=== PATIENT | male | born 1980 | race Caucasian/White ===

== ENCOUNTER 2021-07-21 08:31 | Inpatient (IN) | payer OTHER ==
[2021-07-21 09:07] VITALS: BMI 26.7
[2021-07-21] MEDS ORDERED: BISMUTH SUBSALICYLATE 524 MG/30 ML PO PRN (11:42)
[2021-07-21] MEDS ORDERED: METHOCARBAMOL 500 MG TABLET PO PRN (11:42)
[2021-07-21] MEDS ORDERED: IBUPROFEN 400 MG TABLET (FP) PO PRN (11:42)
[2021-07-21] MEDS ORDERED: MAG HYDROX/AL HYDROX/SIMETH 30 ML UNIT-DOSE CUP PO PRN (11:42)
[2021-07-21] MEDS ORDERED: MAGNESIUM CITRATE 300 ML BOTTLE PO PRN (11:42)
[2021-07-21] MEDS ORDERED: ACETAMINOPHEN 325 MG TABLET (FP) PO PRN ×2 (11:42)
[2021-07-21] MEDS ORDERED: LOPERAMIDE HCL 2 MG CAPSULE PO PRN (11:42)
[2021-07-21] MEDS ORDERED: NICOTINE 10 MG CARTRIDGE (INHALER) IH PRN (11:42)
[2021-07-21] MEDS ORDERED: MENTHOL/PHENOL 1 EACH UD MM PRN (11:42)
[2021-07-21] MEDS ORDERED: LORazepam 2 MG TABLET PO ONE (11:42)
[2021-07-21] MEDS ORDERED: MAGNESIUM HYDROX 2400MG/30ML ORAL SUSPENSION 30 ML CUP PO PRN (11:42)
[2021-07-21] MEDS ORDERED: ONDANSETRON *ODT* 4 MG TABLET SL PRN (11:42)
[2021-07-21] MEDS ORDERED: LORazepam 1 MG TABLET PO PRN (11:42)
[2021-07-21] MEDS: LIDOCAINE 5% TOPICAL PATCH TP SCH (18:22)
[2021-07-21] MEDS: NICOTINE 21 MG/24 HOURS TOPICAL PATCH TD SCH (18:22)
[2021-07-21] MEDS: hydrOXYzine PAMOATE 25 MG CAPSULE (FP) PO SCH ×3 (18:22→22:32)
[2021-07-21] MEDS: LORazepam 2 MG TABLET PO SCH ×2 (18:23→22:31)
[2021-07-21] MEDS: THIAMINE HCL 100 MG TABLET (FP) PO SCH (22:31)
[2021-07-21] MEDS: LIDOCAINE PATCH REMOVAL MC SCH (22:35)
[2021-07-21] MEDS: MELATONIN 5 MG TABLETS PO SCH (22:36)
[2021-07-22] MEDS: hydrOXYzine PAMOATE 25 MG CAPSULE (FP) PO SCH ×5 (06:32→22:17)
[2021-07-22] MEDS: LORazepam 2 MG TABLET PO SCH ×4 (06:33→22:18)
[2021-07-22] MEDS: LIDOCAINE 5% TOPICAL PATCH TP SCH (10:20)
[2021-07-22] MEDS: PRENATAL VITAMINS W/ FOLIC ACID TABLET (FP) PO SCH (10:21)
[2021-07-22] MEDS: NICOTINE 21 MG/24 HOURS TOPICAL PATCH TD SCH (10:22)
[2021-07-22 11:35] LABS: HEMATOCRIT 38.5 % (35.4-49); HEMOGLOBIN 13.2 GM/dL (11.7-16.9); MCH 31.8 pg (25.7-33.7); MCHC 34.1 g/dl (32.0-35.9); MEAN CELL VOLUME 93.2 fl (80-96); MEAN PLT VOLUME 9.1 fl (7.5-11.1); PLATELET COUNT 109 10^3/uL (134-434); RBC 4.14 M/mm3 (4.00-5.60); RDW 14.8 % (11.9-15.9); WHITE BLOOD COUNT 3.9 K/mm3 (4.0-10.0)
[2021-07-22 11:52] LABS: ALBUMIN 2.8 g/dl (3.4-5.0); CREATININE 0.9 mg/dL (0.55-1.3)
[2021-07-22 11:53] LABS: BILIRUBIN,TOTAL 0.5 mg/dL (0.2-1); BLOOD UREA NITROGEN 14.7 mg/dL (7-18)
[2021-07-22 11:54] LABS: TOT PROT 6.5 g/dl (6.4-8.2)
[2021-07-22] MEDS: METOPROLOL TARTRATE 25 MG TABLET (FP) PO SCH (22:17)
[2021-07-22] MEDS: THIAMINE HCL 100 MG TABLET (FP) PO SCH (22:17)
[2021-07-22] MEDS: LIDOCAINE PATCH REMOVAL MC SCH (22:18)
[2021-07-22] MEDS: MELATONIN 5 MG TABLETS PO SCH (22:19)
[2021-07-23] MEDS: LORazepam 1 MG TABLET PO SCH ×3 (07:01→18:16)
[2021-07-23] MEDS: hydrOXYzine PAMOATE 25 MG CAPSULE (FP) PO SCH ×5 (07:02→18:15)
[2021-07-23] MEDS: PRENATAL VITAMINS W/ FOLIC ACID TABLET (FP) PO SCH (11:10)
[2021-07-23] MEDS: METOPROLOL TARTRATE 25 MG TABLET (FP) PO SCH (11:10)
[2021-07-23] MEDS: LIDOCAINE 5% TOPICAL PATCH TP SCH (11:10)
[2021-07-23] MEDS: NICOTINE 21 MG/24 HOURS TOPICAL PATCH TD SCH (11:13)
[2021-07-23 14:07] LABS: SARS-CoV-2 NAA Not Detected (Not Detected)
[2021-07-23 19:01] VITALS: BP 136/68; PULSE 119; TEMP 97.1
[2021-07-24] MEDS ORDERED: LORazepam 0.5 MG TABLET PO PRN
[2021-07-24] MEDS ORDERED: LORazepam 0.5 MG TABLET PO SCH (05:00)
[2021-07-25] MEDS ORDERED: LORazepam 0.5 MG TABLET PO ONE (05:00)
== END 2021-07-23 19:26 | disposition left against medical advice (07) | DRG 770 ==
LOC: YASAS 08:31 → Y6N 14:55
PROVIDERS: ADMIT Allergy & Immunology; ATTEND Allergy & Immunology
PROC: HZ2ZZZZ Detoxification Services for Substance Abuse Treatment (ICD-10-PCS; principal; 2021-07-21)
DX: F10.230 Alcohol dependence with withdrawal, uncomplicated (principal); F17.210 Nicotine dependence, cigarettes, uncomplicated; F10.24 Alcohol dependence with alcohol-induced mood disorder; F31.9 Bipolar disorder, unspecified; K21.9 Gastro-esophageal reflux disease without esophagitis; L30.9 Dermatitis, unspecified; M54.50 Low back pain, unspecified; G89.29 Other chronic pain; R74.01 Elevation of levels of liver transaminase levels; Z59.01 Sheltered homelessness
CPT/HCPCS: 36415; 80053; 85027; 86780; 87811; 93005; 93010; C9803; U0003; U0005

== ENCOUNTER 2021-10-15 10:06 | Inpatient (IN) | payer OTHER ==
[2021-10-15 11:08] VITALS: BMI 35.7
[2021-10-15] MEDS ORDERED: MAGNESIUM CITRATE 300 ML BOTTLE PO PRN (12:01)
[2021-10-15] MEDS ORDERED: IBUPROFEN 400 MG TABLET (FP) PO PRN (12:01)
[2021-10-15] MEDS ORDERED: MAGNESIUM HYDROX 2400MG/30ML ORAL SUSPENSION 30 ML CUP PO PRN (12:01)
[2021-10-15] MEDS ORDERED: ONDANSETRON *ODT* 4 MG TABLET SL PRN (12:01)
[2021-10-15] MEDS ORDERED: BENZOCAINE/MENTHOL (CHLORASEPTIC ) LOZENGE MM PRN (12:01)
[2021-10-15] MEDS ORDERED: METHOCARBAMOL 500 MG TABLET PO PRN (12:01)
[2021-10-15] MEDS ORDERED: LOPERAMIDE HCL 2 MG CAPSULE PO PRN (12:01)
[2021-10-15] MEDS ORDERED: ACETAMINOPHEN 325 MG TABLET (FP) PO PRN ×2 (12:01)
[2021-10-15] MEDS ORDERED: BISMUTH SUBSALICYLATE 262 MG/15 ML BTL PO PRN (12:01)
[2021-10-15] MEDS ORDERED: MAG HYDROX/AL HYDROX/SIMETH 30 ML UNIT-DOSE CUP PO PRN (12:01)
[2021-10-15] MEDS ORDERED: IBUPROFEN 600 MG TABLET (FP) PO PRN (12:01)
[2021-10-15] MEDS ORDERED: DICYCLOMINE HCL 10 MG CAPSULE PO PRN (12:01)
[2021-10-15] MEDS: hydrOXYzine PAMOATE 25 MG CAPSULE (FP) PO SCH ×3 (15:26→22:45)
[2021-10-15] MEDS: NICOTINE 21 MG/24 HOURS TOPICAL PATCH TD SCH (15:26)
[2021-10-15] MEDS: THIAMINE HCL 100 MG TABLET (FP) PO SCH (22:45)
[2021-10-15] MEDS: MELATONIN 5 MG TABLETS PO SCH (22:45)
[2021-10-16] MEDS: NICOTINE 10 MG CARTRIDGE (INHALER) IH PRN ×2 (05:53→15:45)
[2021-10-16] MEDS: hydrOXYzine PAMOATE 25 MG CAPSULE (FP) PO SCH ×5 (05:54→22:29)
[2021-10-16] MEDS: PRENATAL VITAMINS W/ FOLIC ACID TABLET (FP) PO SCH (09:47)
[2021-10-16] MEDS: NICOTINE 21 MG/24 HOURS TOPICAL PATCH TD SCH (09:48)
[2021-10-16] MEDS ORDERED: chlordiazePOXIDE HCL 25 MG CAPSULE PO PRN (09:53)
[2021-10-16 10:57] LABS: HEMATOCRIT 44.3 % (35.4-49); HEMOGLOBIN 14.6 GM/dL (11.7-16.9); MCH 29.5 pg (25.7-33.7); MCHC 32.9 g/dl (32.0-35.9); MEAN CELL VOLUME 89.6 fl (80-96); MEAN PLT VOLUME 10.3 fl (7.5-11.1); PLATELET COUNT 167 10^3/uL (134-434); RBC 4.94 M/mm3 (4.00-5.60); RDW 13.5 % (11.9-15.9); WHITE BLOOD COUNT 7.5 K/mm3 (4.0-10.0)
[2021-10-16 11:00] LABS: BLOOD UREA NITROGEN 18.9 mg/dL (7-18); CALCIUM 8.9 mg/dL (8.5-10.1)
[2021-10-16 11:04] LABS: CREATININE 0.9 mg/dL (0.55-1.3)
[2021-10-16 11:05] LABS: BILIRUBIN,TOTAL 0.4 mg/dL (0.2-1)
[2021-10-16] MEDS: chlordiazePOXIDE HCL 25 MG CAPSULE PO SCH ×3 (11:48→22:29)
[2021-10-16] MEDS: THIAMINE HCL 100 MG TABLET (FP) PO SCH (22:29)
[2021-10-16] MEDS: MELATONIN 5 MG TABLETS PO SCH (22:29)
[2021-10-17] MEDS: hydrOXYzine PAMOATE 25 MG CAPSULE (FP) PO SCH ×5 (08:15→22:23)
[2021-10-17] MEDS: chlordiazePOXIDE HCL 25 MG CAPSULE PO SCH ×4 (08:15→22:23)
[2021-10-17] MEDS: PRENATAL VITAMINS W/ FOLIC ACID TABLET (FP) PO SCH (10:19)
[2021-10-17] MEDS: NICOTINE 21 MG/24 HOURS TOPICAL PATCH TD SCH (10:22)
[2021-10-17] MEDS: NICOTINE 10 MG CARTRIDGE (INHALER) IH PRN (11:48)
[2021-10-17] MEDS: amLODIPine BESYLATE 10 MG TABLET (FP) PO SCH (15:57)
[2021-10-17] MEDS ORDERED: COLLOIDAL OATMEAL 1 BAR EACH TP PRN (20:47)
[2021-10-17] MEDS: THIAMINE HCL 100 MG TABLET (FP) PO SCH (22:23)
[2021-10-17] MEDS: MELATONIN 5 MG TABLETS PO SCH (22:23)
[2021-10-18] MEDS: chlordiazePOXIDE HCL 25 MG CAPSULE PO SCH ×4 (06:17→22:21)
[2021-10-18] MEDS: hydrOXYzine PAMOATE 25 MG CAPSULE (FP) PO SCH ×5 (06:17→22:19)
[2021-10-18] MEDS: NICOTINE 10 MG CARTRIDGE (INHALER) IH PRN (08:42)
[2021-10-18] MEDS: PRENATAL VITAMINS W/ FOLIC ACID TABLET (FP) PO SCH (10:05)
[2021-10-18] MEDS: amLODIPine BESYLATE 10 MG TABLET (FP) PO SCH (10:05)
[2021-10-18] MEDS: NICOTINE 21 MG/24 HOURS TOPICAL PATCH TD SCH (10:07)
[2021-10-18] MEDS: THIAMINE HCL 100 MG TABLET (FP) PO SCH (22:19)
[2021-10-18] MEDS: MELATONIN 5 MG TABLETS PO SCH (22:19)
[2021-10-19] MEDS ORDERED: chlordiazePOXIDE HCL 10 MG CAPSULE PO PRN
[2021-10-19] MEDS: hydrOXYzine PAMOATE 25 MG CAPSULE (FP) PO SCH ×2 (06:13→10:16)
[2021-10-19] MEDS: chlordiazePOXIDE HCL 10 MG CAPSULE PO SCH ×2 (06:13→10:16)
[2021-10-19 09:11] VITALS: BP 151/85; PULSE 108; TEMP 97.1
[2021-10-19] MEDS: NICOTINE 21 MG/24 HOURS TOPICAL PATCH TD SCH (10:15)
[2021-10-19] MEDS: PRENATAL VITAMINS W/ FOLIC ACID TABLET (FP) PO SCH (10:15)
[2021-10-19] MEDS: amLODIPine BESYLATE 10 MG TABLET (FP) PO SCH (10:16)
[2021-10-20] MEDS ORDERED: chlordiazePOXIDE HCL 10 MG CAPSULE PO SCH (05:00)
[2021-10-21] MEDS ORDERED: chlordiazePOXIDE HCL 10 MG CAPSULE PO ONE (05:00)
== END 2021-10-19 10:43 | disposition home or self-care (01) | DRG 775 ==
LOC: YASAS 10:06 → Y3N 13:50
PROVIDERS: ADMIT Allergy & Immunology; ATTEND Surgery
PROC: HZ2ZZZZ Detoxification Services for Substance Abuse Treatment (ICD-10-PCS; principal; 2021-10-15)
DX: F10.230 Alcohol dependence with withdrawal, uncomplicated (principal); F12.20 Cannabis dependence, uncomplicated; F17.210 Nicotine dependence, cigarettes, uncomplicated; F31.9 Bipolar disorder, unspecified; F19.24 Other psychoactive substance dependence with psychoactive substance-induced mood disorder; F10.24 Alcohol dependence with alcohol-induced mood disorder; I10 Essential (primary) hypertension; K21.9 Gastro-esophageal reflux disease without esophagitis; L30.9 Dermatitis, unspecified; M54.50 Low back pain, unspecified; G89.29 Other chronic pain; Z91.14 Patient's other noncompliance with medication regimen
CPT/HCPCS: 36415; 80053; 85027; 86780; 87811; C9803-CS; U0003; U0005

== ENCOUNTER 2021-12-16 08:43 | Inpatient (IN) | payer OTHER ==
[2021-12-16 09:54] VITALS: BMI 38.0
[2021-12-16] MEDS ORDERED: LOPERAMIDE HCL 2 MG CAPSULE PO PRN (11:46)
[2021-12-16] MEDS ORDERED: MAGNESIUM CITRATE 300 ML BOTTLE PO PRN (11:46)
[2021-12-16] MEDS ORDERED: MAG HYDROX/AL HYDROX/SIMETH 30 ML UNIT-DOSE CUP PO PRN (11:46)
[2021-12-16] MEDS ORDERED: MAGNESIUM HYDROX 2400MG/30ML ORAL SUSPENSION 30 ML CUP PO PRN (11:46)
[2021-12-16] MEDS ORDERED: DICYCLOMINE HCL 10 MG CAPSULE PO PRN (11:46)
[2021-12-16] MEDS ORDERED: ACETAMINOPHEN 325 MG TABLET (FP) PO PRN ×2 (11:46)
[2021-12-16] MEDS ORDERED: BISMUTH SUBSALICYLATE 524 MG/30 ML PO PRN (11:46)
[2021-12-16] MEDS ORDERED: IBUPROFEN 400 MG TABLET (FP) PO PRN (11:46)
[2021-12-16] MEDS ORDERED: BENZOCAINE/MENTHOL (CHLORASEPTIC ) LOZENGE MM PRN (11:46)
[2021-12-16] MEDS ORDERED: ONDANSETRON *ODT* 4 MG TABLET SL PRN (11:46)
[2021-12-16] MEDS: hydrOXYzine PAMOATE 25 MG CAPSULE (FP) PO PRN ×2 (18:18→22:37)
[2021-12-16] MEDS: METHOCARBAMOL 500 MG TABLET PO PRN (18:18)
[2021-12-16] MEDS: MELATONIN 5 MG TABLETS PO SCH (22:37)
[2021-12-16] MEDS: THIAMINE HCL 100 MG TABLET (FP) PO SCH (22:37)
[2021-12-17] MEDS: NICOTINE POLACRILEX 2 MG GUM BUC PRN ×2 (05:50→10:08)
[2021-12-17] MEDS: PRENATAL VITAMINS W/ FOLIC ACID TABLET (FP) PO SCH (10:02)
[2021-12-17] MEDS: hydrOXYzine PAMOATE 25 MG CAPSULE (FP) PO PRN ×3 (10:02→22:13)
[2021-12-17] MEDS: NICOTINE 14 MG/24 HOURS TOPICAL PATCH TD SCH (10:03)
[2021-12-17] MEDS: IBUPROFEN 600 MG TABLET (FP) PO PRN (10:06)
[2021-12-17] MEDS: METHOCARBAMOL 500 MG TABLET PO PRN ×2 (10:06→22:13)
[2021-12-17 10:24] LABS: HEMATOCRIT 40.4 % (35.4-49); HEMOGLOBIN 13.1 GM/dL (11.7-16.9); MCH 28.1 pg (25.7-33.7); MCHC 32.6 g/dl (32.0-35.9); MEAN CELL VOLUME 86.3 fl (80-96); MEAN PLT VOLUME 9.6 fl (7.5-11.1); PLATELET COUNT 139 10^3/uL (134-434); RBC 4.68 M/mm3 (4.00-5.60); RDW 15.5 % (11.9-15.9); WHITE BLOOD COUNT 4.4 K/mm3 (4.0-10.0)
[2021-12-17 10:30] LABS: ALBUMIN 3.1 g/dl (3.4-5.0)
[2021-12-17 10:31] LABS: BLOOD UREA NITROGEN 15.4 mg/dL (7-18); CALCIUM 8.4 mg/dL (8.5-10.1)
[2021-12-17 10:32] LABS: CREATININE 0.8 mg/dL (0.55-1.3)
[2021-12-17 10:34] LABS: BILIRUBIN,TOTAL 0.4 mg/dL (0.2-1); TOT PROT 6.3 g/dl (6.4-8.2)
[2021-12-17] MEDS: NICOTINE 10 MG CARTRIDGE (INHALER) IH PRN ×2 (12:57→22:14)
[2021-12-17] MEDS ORDERED: COLLOIDAL OATMEAL 1 BAR EACH TP PRN (13:58)
[2021-12-17] MEDS: AMMONIUM LACTATE 12% LOTION 225 GM BOTTLE TP SCH (16:44)
[2021-12-17] MEDS: MELATONIN 5 MG TABLETS PO SCH (22:13)
[2021-12-17] MEDS: THIAMINE HCL 100 MG TABLET (FP) PO SCH (22:13)
[2021-12-18] MEDS: METHOCARBAMOL 500 MG TABLET PO PRN (05:37)
[2021-12-18] MEDS: IBUPROFEN 600 MG TABLET (FP) PO PRN (05:38)
[2021-12-18] MEDS: hydrOXYzine PAMOATE 25 MG CAPSULE (FP) PO PRN ×2 (05:38→10:30)
[2021-12-18 09:10] VITALS: BP 138/85; PULSE 89; RESP 17; TEMP 97.4
[2021-12-18] MEDS: PRENATAL VITAMINS W/ FOLIC ACID TABLET (FP) PO SCH (10:30)
[2021-12-18] MEDS: AMMONIUM LACTATE 12% LOTION 225 GM BOTTLE TP SCH (10:31)
[2021-12-18] MEDS: NICOTINE 14 MG/24 HOURS TOPICAL PATCH TD SCH (10:32)
== END 2021-12-18 11:30 | disposition home or self-care (01) | DRG 775 ==
LOC: YASAS 08:43 → UNDOADMIN 11:57 → Y6N 11:57
PROVIDERS: ADMIT Allergy & Immunology; ATTEND Surgery
PROC: HZ2ZZZZ Detoxification Services for Substance Abuse Treatment (ICD-10-PCS; principal; 2021-12-16)
DX: F10.230 Alcohol dependence with withdrawal, uncomplicated (principal); F12.20 Cannabis dependence, uncomplicated; F17.213 Nicotine dependence, cigarettes, with withdrawal; K21.9 Gastro-esophageal reflux disease without esophagitis; M54.59 Other low back pain; G89.29 Other chronic pain; L30.9 Dermatitis, unspecified
CPT/HCPCS: 36415; 80053; 85027; 86780; C9803-CS; U0003; U0005

== ENCOUNTER 2022-03-28 21:13 | Inpatient (IN) | payer OTHER ==
[2022-03-28 21:53] VITALS: BMI 36.9
[2022-03-28] MEDS ORDERED: DICYCLOMINE HCL 10 MG CAPSULE PO PRN (22:17)
[2022-03-28] MEDS ORDERED: NICOTINE POLACRILEX 2 MG GUM BUC PRN (22:17)
[2022-03-28] MEDS ORDERED: BENZOCAINE/MENTHOL (CHLORASEPTIC ) LOZENGE MM PRN (22:17)
[2022-03-28] MEDS ORDERED: P-EPHED 60MG/TRIPROLIDI 2.5MG TABLET PO PRN (22:17)
[2022-03-28] MEDS ORDERED: guaiFENesin 200 MG/10 ML 10 ML UNIT-DOSE CUPS PO PRN (22:17)
[2022-03-28] MEDS ORDERED: LOPERAMIDE HCL 2 MG CAPSULE PO PRN (22:17)
[2022-03-28] MEDS ORDERED: MAG HYDROX/AL HYDROX/SIMETH 30 ML UNIT-DOSE CUP PO PRN (22:17)
[2022-03-28] MEDS ORDERED: ACETAMINOPHEN 325 MG TABLET (FP) PO PRN (22:17)
[2022-03-28] MEDS ORDERED: ONDANSETRON *ODT* 4 MG TABLET SL PRN (22:17)
[2022-03-28] MEDS ORDERED: hydrOXYzine PAMOATE 25 MG CAPSULE (FP) PO PRN (22:17)
[2022-03-28] MEDS ORDERED: BISMUTH SUBSALICYLATE 524 MG/30 ML PO PRN (22:17)
[2022-03-28] MEDS ORDERED: IBUPROFEN 400 MG TABLET (FP) PO PRN (22:17)
[2022-03-28] MEDS ORDERED: NALOXONE HCL (KLOXXADO) 8 MG SPRAY NS PRN (22:17)
[2022-03-28] MEDS ORDERED: chlordiazePOXIDE HCL 25 MG CAPSULE PO PRN (22:19)
[2022-03-28] MEDS ORDERED: chlordiazePOXIDE HCL 25 MG CAPSULE ONE (22:53)
[2022-03-28] MEDS: chlordiazePOXIDE HCL 25 MG CAPSULE PO SCH (22:54)
[2022-03-29] MEDS: chlordiazePOXIDE HCL 25 MG CAPSULE PO SCH ×4 (05:51→22:21)
[2022-03-29 10:05] LABS: HEMATOCRIT 41.8 % (35.4-49); HEMOGLOBIN 13.9 GM/dL (11.7-16.9); MCH 28.5 pg (25.7-33.7); MCHC 33.2 g/dl (32.0-35.9); MEAN PLT VOLUME 9.3 fl (7.5-11.1); PLATELET COUNT 135 10^3/uL (134-434); RBC 4.86 M/mm3 (4.00-5.60); RDW 14.5 % (11.9-15.9); WHITE BLOOD COUNT 5.2 K/mm3 (4.0-10.0)
[2022-03-29 10:25] LABS: CALCIUM 8.4 mg/dL (8.5-10.1)
[2022-03-29 10:26] LABS: ALBUMIN 3.4 g/dl (3.4-5.0)
[2022-03-29 10:29] LABS: CREATININE 0.7 mg/dL (0.55-1.3)
[2022-03-29] MEDS: PRENATAL VITAMINS W/ FOLIC ACID TABLET (FP) PO SCH (10:29)
[2022-03-29 10:30] LABS: BILIRUBIN,TOTAL 0.3 mg/dL (0.2-1); TOT PROT 6.7 g/dl (6.4-8.2)
[2022-03-29] MEDS: NICOTINE 10 MG CARTRIDGE (INHALER) IH PRN (11:54)
[2022-03-29] MEDS ORDERED: COLLOIDAL OATMEAL 1 BAR EACH TP PRN (15:16)
[2022-03-29] MEDS: MAGNESIUM HYDROX 2400MG/30ML ORAL SUSPENSION 30 ML CUP PO PRN (19:43)
[2022-03-29] MEDS: THIAMINE HCL 100 MG TABLET (FP) PO SCH (22:21)
[2022-03-29] MEDS: AMMONIUM LACTATE 12% LOTION 225 GM BOTTLE TP SCH (22:23)
[2022-03-29] MEDS: POLYETHYLENE GLYCOL (HEALTHYLAX) 3350 17 GM PACKET PO PRN (22:34)
[2022-03-29] MEDS: METHOCARBAMOL 500 MG TABLET PO PRN (22:38)
[2022-03-30] MEDS: chlordiazePOXIDE HCL 25 MG CAPSULE PO SCH ×4 (05:26→22:32)
[2022-03-30] MEDS: MAGNESIUM HYDROX 2400MG/30ML ORAL SUSPENSION 30 ML CUP PO PRN (05:28)
[2022-03-30] MEDS: ACETAMINOPHEN 325 MG TABLET (FP) PO PRN (05:29)
[2022-03-30] MEDS: NICOTINE 10 MG CARTRIDGE (INHALER) IH PRN ×2 (09:54→14:36)
[2022-03-30] MEDS: AMMONIUM LACTATE 12% LOTION 225 GM BOTTLE TP SCH ×2 (10:20→22:30)
[2022-03-30] MEDS: SERTRALINE HCL 50 MG TABLET (FP) PO SCH (10:21)
[2022-03-30] MEDS: DIVALPROEX NA *ER* EXTEND REL 500 MG TABLET.SA (FP) PO SCH (10:21)
[2022-03-30] MEDS: METHOCARBAMOL 500 MG TABLET PO PRN ×2 (10:21→22:33)
[2022-03-30] MEDS: PRENATAL VITAMINS W/ FOLIC ACID TABLET (FP) PO SCH (10:21)
[2022-03-30] MEDS: POLYETHYLENE GLYCOL (HEALTHYLAX) 3350 17 GM PACKET PO PRN (11:35)
[2022-03-30] MEDS: THIAMINE HCL 100 MG TABLET (FP) PO SCH (22:31)
[2022-03-30] MEDS: MELATONIN 5 MG TABLETS PO PRN (22:31)
[2022-03-31] MEDS ORDERED: chlordiazePOXIDE HCL 10 MG CAPSULE PO PRN
[2022-03-31] MEDS: IBUPROFEN 600 MG TABLET (FP) PO PRN ×2 (01:54→16:53)
[2022-03-31] MEDS: chlordiazePOXIDE HCL 10 MG CAPSULE PO SCH ×4 (05:23→22:38)
[2022-03-31] MEDS: METHOCARBAMOL 500 MG TABLET PO PRN ×3 (05:26→17:10)
[2022-03-31] MEDS: DIVALPROEX NA *ER* EXTEND REL 500 MG TABLET.SA (FP) PO SCH (10:36)
[2022-03-31] MEDS: SERTRALINE HCL 50 MG TABLET (FP) PO SCH (10:37)
[2022-03-31] MEDS: AMMONIUM LACTATE 12% LOTION 225 GM BOTTLE TP SCH ×2 (10:37→22:37)
[2022-03-31] MEDS: PRENATAL VITAMINS W/ FOLIC ACID TABLET (FP) PO SCH (10:37)
[2022-03-31] MEDS: ACETAMINOPHEN 325 MG TABLET (FP) PO PRN ×2 (13:40→22:39)
[2022-03-31] MEDS: MAGNESIUM HYDROX 2400MG/30ML ORAL SUSPENSION 30 ML CUP PO PRN (13:43)
[2022-03-31] MEDS: CLOTRIMAZOLE 1% CREAM TP SCH (22:37)
[2022-03-31] MEDS: MELATONIN 5 MG TABLETS PO PRN (22:37)
[2022-03-31] MEDS: THIAMINE HCL 100 MG TABLET (FP) PO SCH (22:38)
[2022-04-01] MEDS: chlordiazePOXIDE HCL 10 MG CAPSULE PO SCH ×2 (05:28→17:50)
[2022-04-01] MEDS: METHOCARBAMOL 500 MG TABLET PO PRN ×2 (05:31→17:49)
[2022-04-01] MEDS: DIVALPROEX NA *ER* EXTEND REL 500 MG TABLET.SA (FP) PO SCH (10:16)
[2022-04-01] MEDS: NICOTINE 10 MG CARTRIDGE (INHALER) IH PRN (10:16)
[2022-04-01] MEDS: PRENATAL VITAMINS W/ FOLIC ACID TABLET (FP) PO SCH (10:17)
[2022-04-01] MEDS: CLOTRIMAZOLE 1% CREAM TP SCH ×2 (10:17→22:13)
[2022-04-01] MEDS: SERTRALINE HCL 50 MG TABLET (FP) PO SCH (10:17)
[2022-04-01] MEDS: AMMONIUM LACTATE 12% LOTION 225 GM BOTTLE TP SCH ×2 (10:19→22:13)
[2022-04-01] MEDS: MAGNESIUM HYDROX 2400MG/30ML ORAL SUSPENSION 30 ML CUP PO PRN (14:04)
[2022-04-01] MEDS ORDERED: MELATONIN 5 MG TABLETS PO PRN (14:13)
[2022-04-01] MEDS: THIAMINE HCL 100 MG TABLET (FP) PO SCH (22:12)
[2022-04-02] MEDS ORDERED: chlordiazePOXIDE HCL 10 MG CAPSULE PO ONE (05:00)
[2022-04-02] MEDS: MAGNESIUM HYDROX 2400MG/30ML ORAL SUSPENSION 30 ML CUP PO PRN (05:39)
[2022-04-02 09:48] VITALS: BP 145/70; PULSE 109; RESP 18; TEMP 97.8
== END 2022-04-02 10:02 | disposition other institution (70) | DRG 775 ==
LOC: YASAS 21:13 → Y3N 22:51
PROVIDERS: ADMIT Allergy & Immunology; ATTEND Surgery
PROC: HZ2ZZZZ Detoxification Services for Substance Abuse Treatment (ICD-10-PCS; principal; 2022-03-28)
DX: F10.230 Alcohol dependence with withdrawal, uncomplicated (principal); F17.210 Nicotine dependence, cigarettes, uncomplicated; F31.9 Bipolar disorder, unspecified; K21.9 Gastro-esophageal reflux disease without esophagitis; L30.9 Dermatitis, unspecified; M54.50 Low back pain, unspecified; G89.29 Other chronic pain; B35.3 Tinea pedis; Z59.01 Sheltered homelessness
CPT/HCPCS: 36415; 80053; 85027; 86780; C9803-CS; U0003; U0005

== ENCOUNTER 2022-04-30 15:59 | Inpatient (IN) | payer OTHER ==
[2022-04-30 17:11] VITALS: BMI 37.7
[2022-04-30] MEDS ORDERED: IBUPROFEN 400 MG TABLET (FP) PO PRN (17:29)
[2022-04-30] MEDS ORDERED: DICYCLOMINE HCL 10 MG CAPSULE PO PRN (17:29)
[2022-04-30] MEDS ORDERED: NALOXONE HCL (KLOXXADO) 8 MG SPRAY NS PRN (17:29)
[2022-04-30] MEDS ORDERED: LOPERAMIDE HCL 2 MG CAPSULE PO PRN (17:29)
[2022-04-30] MEDS ORDERED: BISMUTH SUBSALICYLATE 524 MG/30 ML PO PRN (17:29)
[2022-04-30] MEDS ORDERED: ACETAMINOPHEN 325 MG TABLET (FP) PO PRN ×2 (17:29)
[2022-04-30] MEDS ORDERED: POLYETHYLENE GLYCOL (HEALTHYLAX) 3350 17 GM PACKET PO PRN (17:29)
[2022-04-30] MEDS ORDERED: NICOTINE 10 MG CARTRIDGE (INHALER) IH PRN (17:29)
[2022-04-30] MEDS ORDERED: ONDANSETRON *ODT* 4 MG TABLET SL PRN (17:29)
[2022-04-30] MEDS ORDERED: MAG HYDROX/AL HYDROX/SIMETH 30 ML UNIT-DOSE CUP PO PRN (17:29)
[2022-04-30] MEDS: IBUPROFEN 600 MG TABLET (FP) PO PRN (19:35)
[2022-04-30] MEDS: hydrOXYzine PAMOATE 25 MG CAPSULE (FP) PO PRN (19:36)
[2022-04-30] MEDS: MELATONIN 5 MG TABLETS PO SCH (22:49)
[2022-04-30] MEDS: THIAMINE HCL 100 MG TABLET (FP) PO SCH (22:49)
[2022-04-30] MEDS: METHOCARBAMOL 500 MG TABLET PO PRN (22:49)
[2022-05-01] MEDS ORDERED: PATIENT'S OWN MEDICATION (NON-FORMULARY) (Ibuprofen [Ibuprofen] 800 MG Tablet) PO PRN (09:35)
[2022-05-01] MEDS ORDERED: NICOTINE 7 MG/24 HOURS TOPICAL PATCH TD SCH (10:00)
[2022-05-01] MEDS: NICOTINE 21 MG/24 HOURS TOPICAL PATCH TD SCH (10:14)
[2022-05-01] MEDS: PRENATAL VITAMINS W/ FOLIC ACID TABLET (FP) PO SCH (10:14)
[2022-05-01] MEDS: METHOCARBAMOL 500 MG TABLET PO PRN (10:14)
[2022-05-01] MEDS: chlordiazePOXIDE HCL 25 MG CAPSULE PO SCH ×3 (10:15→22:03)
[2022-05-01] MEDS: SERTRALINE HCL 50 MG TABLET (FP) PO SCH (10:45)
[2022-05-01] MEDS: IBUPROFEN 600 MG TABLET (FP) PO PRN (11:24)
[2022-05-01 11:52] LABS: HEMATOCRIT 44.6 % (35.4-49); HEMOGLOBIN 14.6 GM/dL (11.7-16.9); MCH 28.3 pg (25.7-33.7); MCHC 32.7 g/dl (32.0-35.9); MEAN CELL VOLUME 86.5 fl (80-96); MEAN PLT VOLUME 9.6 fl (7.5-11.1); PLATELET COUNT 165 10^3/uL (134-434); RBC 5.16 M/mm3 (4.00-5.60); RDW 14.8 % (11.9-15.9); WHITE BLOOD COUNT 5.8 K/mm3 (4.0-10.0)
[2022-05-01 11:53] LABS: ALBUMIN 3.5 g/dl (3.4-5.0); BLOOD UREA NITROGEN 16.2 mg/dL (7-18); CALCIUM 8.9 mg/dL (8.5-10.1)
[2022-05-01 11:56] LABS: CREATININE 0.8 mg/dL (0.55-1.3)
[2022-05-01 11:57] LABS: BILIRUBIN,TOTAL 0.6 mg/dL (0.2-1)
[2022-05-01] MEDS: LORATADINE 10 MG TABLET PO SCH (14:17)
[2022-05-01] MEDS: LIDOCAINE 5% TOPICAL PATCH TP SCH (14:18)
[2022-05-01] MEDS: hydrOXYzine PAMOATE 25 MG CAPSULE (FP) PO PRN (17:09)
[2022-05-01] MEDS ORDERED: DIVALPROEX NA *ER* EXTEND REL 500 MG TABLET.SA (FP) PO SCH (22:00)
[2022-05-01] MEDS: THIAMINE HCL 100 MG TABLET (FP) PO SCH (22:03)
[2022-05-01] MEDS: MELATONIN 5 MG TABLETS PO SCH (22:03)
[2022-05-01] MEDS: LIDOCAINE PATCH REMOVAL MC SCH (22:05)
[2022-05-02] MEDS: chlordiazePOXIDE HCL 25 MG CAPSULE PO SCH ×4 (05:08→22:36)
[2022-05-02] MEDS: LIDOCAINE 5% TOPICAL PATCH TP SCH (10:11)
[2022-05-02] MEDS: SERTRALINE HCL 50 MG TABLET (FP) PO SCH ×2 (10:12→13:47)
[2022-05-02] MEDS: LORATADINE 10 MG TABLET PO SCH (10:12)
[2022-05-02] MEDS: PRENATAL VITAMINS W/ FOLIC ACID TABLET (FP) PO SCH (10:13)
[2022-05-02] MEDS: NICOTINE 21 MG/24 HOURS TOPICAL PATCH TD SCH (10:13)
[2022-05-02] MEDS: hydrOXYzine PAMOATE 25 MG CAPSULE (FP) PO PRN (11:00)
[2022-05-02] MEDS: hydrOXYzine PAMOATE 50 MG CAPSULE (FP) PO PRN (13:49)
[2022-05-02] MEDS: DIVALPROEX SODIUM 500 MG TABLET E.C. PO SCH ×2 (13:49→22:35)
[2022-05-02] MEDS: risperiDONE 1 MG TABLET PO SCH ×2 (13:49→22:36)
[2022-05-02] MEDS: NICOTINE POLACRILEX 2 MG GUM BUC PRN (13:52)
[2022-05-02] MEDS: METHOCARBAMOL 500 MG TABLET PO PRN (18:45)
[2022-05-02] MEDS: MAGNESIUM HYDROX 2400MG/30ML ORAL SUSPENSION 30 ML CUP PO PRN (18:45)
[2022-05-02] MEDS: IBUPROFEN 600 MG TABLET (FP) PO PRN (18:46)
[2022-05-02] MEDS: THIAMINE HCL 100 MG TABLET (FP) PO SCH (22:34)
[2022-05-02] MEDS: MELATONIN 5 MG TABLETS PO SCH (22:35)
[2022-05-03] MEDS: LIDOCAINE PATCH REMOVAL MC SCH ×2 (00:32→22:40)
[2022-05-03] MEDS: chlordiazePOXIDE HCL 25 MG CAPSULE PO SCH ×4 (06:00→22:05)
[2022-05-03] MEDS: LIDOCAINE 5% TOPICAL PATCH TP SCH (10:17)
[2022-05-03] MEDS: SERTRALINE HCL 50 MG TABLET (FP) PO SCH ×2 (10:17→10:20)
[2022-05-03] MEDS: LORATADINE 10 MG TABLET PO SCH (10:17)
[2022-05-03] MEDS: DIVALPROEX SODIUM 500 MG TABLET E.C. PO SCH ×2 (10:17→21:49)
[2022-05-03] MEDS: NICOTINE 21 MG/24 HOURS TOPICAL PATCH TD SCH (10:18)
[2022-05-03] MEDS: PRENATAL VITAMINS W/ FOLIC ACID TABLET (FP) PO SCH (10:18)
[2022-05-03] MEDS: risperiDONE 1 MG TABLET PO SCH ×2 (10:19→21:49)
[2022-05-03] MEDS: NICOTINE POLACRILEX 2 MG GUM BUC PRN (13:12)
[2022-05-03] MEDS: hydrOXYzine PAMOATE 50 MG CAPSULE (FP) PO PRN (17:33)
[2022-05-03] MEDS: IBUPROFEN 600 MG TABLET (FP) PO PRN (17:34)
[2022-05-03] MEDS: MAGNESIUM HYDROX 2400MG/30ML ORAL SUSPENSION 30 ML CUP PO PRN (18:06)
[2022-05-03] MEDS: MELATONIN 5 MG TABLETS PO SCH (21:49)
[2022-05-03] MEDS: THIAMINE HCL 100 MG TABLET (FP) PO SCH (21:49)
[2022-05-04] MEDS: chlordiazePOXIDE HCL 10 MG CAPSULE PO SCH ×4 (06:03→22:05)
[2022-05-04] MEDS: BENZOCAINE/MENTHOL (CHLORASEPTIC ) LOZENGE MM PRN (06:07)
[2022-05-04] MEDS: PRENATAL VITAMINS W/ FOLIC ACID TABLET (FP) PO SCH (10:14)
[2022-05-04] MEDS: NICOTINE 21 MG/24 HOURS TOPICAL PATCH TD SCH (10:15)
[2022-05-04] MEDS: DIVALPROEX SODIUM 500 MG TABLET E.C. PO SCH ×2 (10:15→22:05)
[2022-05-04] MEDS: risperiDONE 1 MG TABLET PO SCH ×2 (10:15→22:05)
[2022-05-04] MEDS: LIDOCAINE 5% TOPICAL PATCH TP SCH (10:15)
[2022-05-04] MEDS: SERTRALINE HCL 50 MG TABLET (FP) PO SCH (10:15)
[2022-05-04] MEDS: LORATADINE 10 MG TABLET PO SCH (10:21)
[2022-05-04] MEDS: IBUPROFEN 600 MG TABLET (FP) PO PRN (11:22)
[2022-05-04] MEDS: MAGNESIUM HYDROX 2400MG/30ML ORAL SUSPENSION 30 ML CUP PO PRN (16:40)
[2022-05-04] MEDS: hydrOXYzine PAMOATE 50 MG CAPSULE (FP) PO PRN (17:22)
[2022-05-04] MEDS: LIDOCAINE PATCH REMOVAL MC SCH (22:05)
[2022-05-04] MEDS: THIAMINE HCL 100 MG TABLET (FP) PO SCH (22:05)
[2022-05-04] MEDS: MELATONIN 5 MG TABLETS PO SCH (22:06)
[2022-05-04] MEDS ORDERED: BISACODYL 5 MG TABLET.DR (FP) PO PRN (22:35)
[2022-05-05] MEDS: chlordiazePOXIDE HCL 10 MG CAPSULE PO SCH ×2 (06:18→17:30)
[2022-05-05] MEDS: BENZOCAINE/MENTHOL (CHLORASEPTIC ) LOZENGE MM PRN ×2 (07:15→12:43)
[2022-05-05] MEDS: PRENATAL VITAMINS W/ FOLIC ACID TABLET (FP) PO SCH (10:42)
[2022-05-05] MEDS: DIVALPROEX SODIUM 500 MG TABLET E.C. PO SCH ×2 (10:43→22:07)
[2022-05-05] MEDS: guaiFENesin 200 MG/10 ML 10 ML UNIT-DOSE CUPS PO PRN ×2 (10:43→14:55)
[2022-05-05] MEDS: NICOTINE 21 MG/24 HOURS TOPICAL PATCH TD SCH (10:43)
[2022-05-05] MEDS: SERTRALINE HCL 50 MG TABLET (FP) PO SCH (10:43)
[2022-05-05] MEDS: risperiDONE 1 MG TABLET PO SCH ×2 (10:43→22:07)
[2022-05-05] MEDS: LIDOCAINE 5% TOPICAL PATCH TP SCH (10:43)
[2022-05-05] MEDS: LORATADINE 10 MG TABLET PO SCH (10:43)
[2022-05-05] MEDS: MAGNESIUM HYDROX 2400MG/30ML ORAL SUSPENSION 30 ML CUP PO PRN (19:01)
[2022-05-05] MEDS ORDERED: DOCUSATE SODIUM 100 MG CAPSULE (FP) PO SCH (22:00)
[2022-05-05] MEDS: LIDOCAINE PATCH REMOVAL MC SCH (22:07)
[2022-05-05] MEDS: MELATONIN 5 MG TABLETS PO SCH (22:07)
[2022-05-05] MEDS: THIAMINE HCL 100 MG TABLET (FP) PO SCH (22:07)
[2022-05-05] MEDS: IBUPROFEN 600 MG TABLET (FP) PO PRN (22:10)
[2022-05-06] MEDS ORDERED: MELATONIN 5 MG TABLETS PO SCH ×2 (00:45→22:00)
[2022-05-06] MEDS: hydrOXYzine PAMOATE 50 MG CAPSULE (FP) PO PRN (00:55)
[2022-05-06] MEDS ORDERED: chlordiazePOXIDE HCL 10 MG CAPSULE PO ONE (05:00)
[2022-05-06] MEDS: guaiFENesin 200 MG/10 ML 10 ML UNIT-DOSE CUPS PO PRN (06:07)
[2022-05-06 06:53] VITALS: RESP 18
[2022-05-06] MEDS ORDERED: AZITHROMYCIN 250 MG TABLET PO ONE (09:11)
[2022-05-06 09:54] VITALS: BP 160/74; PULSE 100; TEMP 98.9
[2022-05-06] MEDS: SERTRALINE HCL 50 MG TABLET (FP) PO SCH (11:10)
[2022-05-06] MEDS: PRENATAL VITAMINS W/ FOLIC ACID TABLET (FP) PO SCH (11:11)
[2022-05-06] MEDS: NICOTINE 21 MG/24 HOURS TOPICAL PATCH TD SCH (11:11)
[2022-05-06] MEDS: LIDOCAINE 5% TOPICAL PATCH TP SCH (11:11)
[2022-05-06] MEDS: risperiDONE 1 MG TABLET PO SCH (11:11)
[2022-05-06] MEDS: LORATADINE 10 MG TABLET PO SCH (11:11)
[2022-05-06] MEDS: DIVALPROEX SODIUM 500 MG TABLET E.C. PO SCH (11:11)
[2022-05-07] MEDS ORDERED: AZITHROMYCIN 250 MG TABLET PO SCH (10:00)
== END 2022-05-06 11:47 | disposition home or self-care (01) | DRG 775 ==
LOC: YASAS 15:59 → Y6N 17:55
PROVIDERS: ADMIT Allergy & Immunology; ATTEND Surgery
PROC: HZ2ZZZZ Detoxification Services for Substance Abuse Treatment (ICD-10-PCS; principal; 2022-04-30)
DX: F10.230 Alcohol dependence with withdrawal, uncomplicated (principal); F13.20 Sedative, hypnotic or anxiolytic dependence, uncomplicated; F17.210 Nicotine dependence, cigarettes, uncomplicated; F10.280 Alcohol dependence with alcohol-induced anxiety disorder; F10.282 Alcohol dependence with alcohol-induced sleep disorder; F31.9 Bipolar disorder, unspecified; G47.00 Insomnia, unspecified; J40 Bronchitis, not specified as acute or chronic; K21.9 Gastro-esophageal reflux disease without esophagitis; K59.00 Constipation, unspecified; L30.9 Dermatitis, unspecified; M54.50 Low back pain, unspecified; G89.29 Other chronic pain; Z86.59 Personal history of other mental and behavioral disorders
CPT/HCPCS: 36415; 80053; 85027; 86780; C9803-CS; J2794; U0003; U0005

== ENCOUNTER 2022-08-19 19:44 | Inpatient (IN) | payer OTHER ==
[2022-08-19 20:13] VITALS: BMI 40.1
[2022-08-19] MEDS ORDERED: POLYETHYLENE GLYCOL (HEALTHYLAX) 3350 17 GM PACKET PO PRN (20:39)
[2022-08-19] MEDS ORDERED: P-EPHED 60MG/TRIPROLIDI 2.5MG TABLET PO PRN (20:39)
[2022-08-19] MEDS ORDERED: DICYCLOMINE HCL 10 MG CAPSULE PO PRN (20:39)
[2022-08-19] MEDS ORDERED: BENZOCAINE/MENTHOL (CHLORASEPTIC ) LOZENGE MM PRN (20:39)
[2022-08-19] MEDS ORDERED: guaiFENesin 600 MG TABLET.ER (FP) PO PRN (20:39)
[2022-08-19] MEDS ORDERED: BISMUTH SUBSALICYLATE 524 MG/30 ML PO PRN (20:39)
[2022-08-19] MEDS ORDERED: BENZONATATE 200 MG CAPSULE PO PRN (20:39)
[2022-08-19] MEDS ORDERED: MAG HYDROX/AL HYDROX/SIMETH 30 ML UNIT-DOSE CUP PO PRN (20:39)
[2022-08-19] MEDS ORDERED: MAGNESIUM HYDROX 2400MG/30ML ORAL SUSPENSION 30 ML CUP PO PRN (20:39)
[2022-08-19] MEDS ORDERED: ONDANSETRON *ODT* 4 MG TABLET SL PRN (20:39)
[2022-08-19] MEDS ORDERED: ACETAMINOPHEN 325 MG TABLET (FP) PO PRN (20:39)
[2022-08-19] MEDS ORDERED: IBUPROFEN 400 MG TABLET (FP) PO PRN (20:39)
[2022-08-19] MEDS ORDERED: NICOTINE 10 MG CARTRIDGE (INHALER) IH PRN (20:39)
[2022-08-19] MEDS ORDERED: LOPERAMIDE HCL 2 MG CAPSULE PO PRN (20:39)
[2022-08-19] MEDS ORDERED: chlordiazePOXIDE HCL 25 MG CAPSULE PO PRN (20:41)
[2022-08-19] MEDS: MELATONIN 5 MG TABLETS PO SCH (22:05)
[2022-08-19] MEDS: THIAMINE HCL 100 MG TABLET (FP) PO SCH (22:05)
[2022-08-19] MEDS: chlordiazePOXIDE HCL 25 MG CAPSULE PO SCH (22:06)
[2022-08-20] MEDS: chlordiazePOXIDE HCL 25 MG CAPSULE PO SCH ×4 (06:02→22:34)
[2022-08-20] MEDS: PRENATAL VITAMINS W/ FOLIC ACID TABLET (FP) PO SCH (10:40)
[2022-08-20 12:23] LABS: CALCIUM 8.6 mg/dL (8.5-10.1)
[2022-08-20 12:24] LABS: ALBUMIN 3.5 g/dl (3.4-5.0); BLOOD UREA NITROGEN 17.6 mg/dL (7-18)
[2022-08-20 12:27] LABS: CREATININE 0.8 mg/dL (0.55-1.3)
[2022-08-20 12:29] LABS: BILIRUBIN,TOTAL 0.1 mg/dL (0.2-1)
[2022-08-20 12:32] LABS: HEMATOCRIT 41.8 % (35.4-49); MCH 28.6 pg (25.7-33.7); MCHC 33.5 g/dl (32.0-35.9); MEAN CELL VOLUME 85.3 fl (80-96); MEAN PLT VOLUME 9.8 fl (7.5-11.1); PLATELET COUNT 160 10^3/uL (134-434); RDW 14.3 % (11.9-15.9); WHITE BLOOD COUNT 4.3 K/mm3 (4.0-10.0)
[2022-08-20] MEDS: NICOTINE 21 MG/24 HOURS TOPICAL PATCH TD SCH (13:20)
[2022-08-20] MEDS: SERTRALINE HCL 50 MG TABLET (FP) PO SCH (14:43)
[2022-08-20] MEDS: DIVALPROEX SODIUM 250 MG TABLET E.C. PO SCH (14:43)
[2022-08-20] MEDS: IBUPROFEN 600 MG TABLET (FP) PO PRN (17:25)
[2022-08-20] MEDS: NICOTINE POLACRILEX 2 MG GUM BUC PRN (18:52)
[2022-08-20] MEDS ORDERED: DIVALPROEX NA *ER* EXTEND REL 500 MG TABLET.SA (FP) PO SCH (22:00)
[2022-08-20] MEDS: DIVALPROEX SODIUM 500 MG TABLET E.C. PO SCH (22:34)
[2022-08-20] MEDS: traZODone HCL 50 MG TABLET (FP) PO SCH (22:34)
[2022-08-20] MEDS: MELATONIN 5 MG TABLETS PO SCH (22:34)
[2022-08-20] MEDS: THIAMINE HCL 100 MG TABLET (FP) PO SCH (22:34)
[2022-08-21] MEDS: chlordiazePOXIDE HCL 25 MG CAPSULE PO SCH ×4 (05:26→22:10)
[2022-08-21] MEDS: DIVALPROEX SODIUM 250 MG TABLET E.C. PO SCH (10:26)
[2022-08-21] MEDS: risperiDONE 1 MG TABLET PO SCH (10:26)
[2022-08-21] MEDS: NICOTINE 21 MG/24 HOURS TOPICAL PATCH TD SCH (10:26)
[2022-08-21] MEDS: PRENATAL VITAMINS W/ FOLIC ACID TABLET (FP) PO SCH (10:26)
[2022-08-21] MEDS: SERTRALINE HCL 50 MG TABLET (FP) PO SCH (10:26)
[2022-08-21] MEDS: traZODone HCL 50 MG TABLET (FP) PO SCH (22:10)
[2022-08-21] MEDS: DIVALPROEX SODIUM 500 MG TABLET E.C. PO SCH (22:10)
[2022-08-21] MEDS: THIAMINE HCL 100 MG TABLET (FP) PO SCH (22:10)
[2022-08-21] MEDS: MELATONIN 5 MG TABLETS PO SCH (22:10)
[2022-08-22] MEDS ORDERED: chlordiazePOXIDE HCL 10 MG CAPSULE PO PRN
[2022-08-22] MEDS: chlordiazePOXIDE HCL 10 MG CAPSULE PO SCH ×4 (05:55→22:14)
[2022-08-22] MEDS: PRENATAL VITAMINS W/ FOLIC ACID TABLET (FP) PO SCH (10:43)
[2022-08-22] MEDS: SERTRALINE HCL 50 MG TABLET (FP) PO SCH (10:44)
[2022-08-22] MEDS: risperiDONE 1 MG TABLET PO SCH (10:44)
[2022-08-22] MEDS: DIVALPROEX SODIUM 250 MG TABLET E.C. PO SCH (10:44)
[2022-08-22] MEDS: OMEGA-3 ACID ETHYL ESTERS (FATTY-ACIDS) 1 GM CAPSULE (FP) PO SCH ×2 (10:44→22:13)
[2022-08-22] MEDS: NICOTINE 21 MG/24 HOURS TOPICAL PATCH TD SCH (10:46)
[2022-08-22] MEDS: IBUPROFEN 600 MG TABLET (FP) PO PRN (14:08)
[2022-08-22] MEDS: NICOTINE POLACRILEX 2 MG GUM BUC PRN (17:23)
[2022-08-22] MEDS: THIAMINE HCL 100 MG TABLET (FP) PO SCH (22:14)
[2022-08-22] MEDS: DIVALPROEX SODIUM 500 MG TABLET E.C. PO SCH (22:14)
[2022-08-22] MEDS: MELATONIN 5 MG TABLETS PO SCH (22:14)
[2022-08-22] MEDS: traZODone HCL 50 MG TABLET (FP) PO SCH (22:14)
[2022-08-23] MEDS ORDERED: chlordiazePOXIDE HCL 10 MG CAPSULE PO SCH (05:00)
[2022-08-23] MEDS: DIVALPROEX SODIUM 250 MG TABLET E.C. PO SCH (09:09)
[2022-08-23] MEDS: IBUPROFEN 600 MG TABLET (FP) PO PRN (09:09)
[2022-08-23] MEDS: SERTRALINE HCL 50 MG TABLET (FP) PO SCH (09:09)
[2022-08-23] MEDS: risperiDONE 1 MG TABLET PO SCH (09:09)
[2022-08-23] MEDS: PRENATAL VITAMINS W/ FOLIC ACID TABLET (FP) PO SCH (09:12)
[2022-08-23] MEDS: OMEGA-3 ACID ETHYL ESTERS (FATTY-ACIDS) 1 GM CAPSULE (FP) PO SCH (10:57)
[2022-08-23] MEDS: NICOTINE 21 MG/24 HOURS TOPICAL PATCH TD SCH (10:57)
[2022-08-23] MEDS ORDERED: hydrOXYzine PAMOATE 25 MG CAPSULE (FP) PO PRN (11:23)
[2022-08-23 12:55] VITALS: BP 127/70; PULSE 116; RESP 18; TEMP 97.8
[2022-08-24] MEDS ORDERED: chlordiazePOXIDE HCL 10 MG CAPSULE PO ONE (05:00)
== END 2022-08-23 15:35 | disposition home or self-care (01) | DRG 775 ==
LOC: YASAS 19:44 → Y6N 21:20
PROVIDERS: ADMIT Allergy & Immunology; ATTEND Surgery
PROC: HZ2ZZZZ Detoxification Services for Substance Abuse Treatment (ICD-10-PCS; principal; 2022-08-19)
DX: F10.230 Alcohol dependence with withdrawal, uncomplicated (principal); F17.210 Nicotine dependence, cigarettes, uncomplicated; F10.282 Alcohol dependence with alcohol-induced sleep disorder; F10.24 Alcohol dependence with alcohol-induced mood disorder; F31.9 Bipolar disorder, unspecified; F90.9 Attention-deficit hyperactivity disorder, unspecified type; K21.9 Gastro-esophageal reflux disease without esophagitis; L30.9 Dermatitis, unspecified; M54.50 Low back pain, unspecified; G89.29 Other chronic pain; E66.01 Morbid (severe) obesity due to excess calories; Z68.41 Body mass index [BMI] 40.0-44.9, adult; Z56.0 Unemployment, unspecified; Z59.01 Sheltered homelessness
CPT/HCPCS: 36415; 80053; 85027; 86780; 87811; C9803-CS; U0003; U0005

== ENCOUNTER 2022-10-01 21:14 | Inpatient (IN) | payer OTHER ==
[2022-10-01 21:57] VITALS: BMI 42.5
[2022-10-01] MEDS ORDERED: BENZOCAINE/MENTHOL (CHLORASEPTIC ) LOZENGE MM PRN (22:56)
[2022-10-01] MEDS ORDERED: ONDANSETRON *ODT* 4 MG TABLET SL PRN (22:56)
[2022-10-01] MEDS ORDERED: IBUPROFEN 400 MG TABLET (FP) PO PRN (22:56)
[2022-10-01] MEDS ORDERED: guaiFENesin 600 MG TABLET.ER (FP) PO PRN (22:56)
[2022-10-01] MEDS ORDERED: LOPERAMIDE HCL 2 MG CAPSULE PO PRN (22:56)
[2022-10-01] MEDS ORDERED: POLYETHYLENE GLYCOL (HEALTHYLAX) 3350 17 GM PACKET PO PRN (22:56)
[2022-10-01] MEDS ORDERED: BISMUTH SUBSALICYLATE 524 MG/30 ML PO PRN (22:56)
[2022-10-01] MEDS ORDERED: NALOXONE HCL 0.4 MG/ML VIAL IM PRN (22:56)
[2022-10-01] MEDS ORDERED: MAG HYDROX/AL HYDROX/SIMETH 30 ML UNIT-DOSE CUP PO PRN (22:56)
[2022-10-01] MEDS ORDERED: ACETAMINOPHEN 325 MG TABLET (FP) PO PRN ×2 (22:56)
[2022-10-01] MEDS ORDERED: IBUPROFEN 600 MG TABLET (FP) PO PRN (22:56)
[2022-10-01] MEDS ORDERED: NALOXONE HCL (KLOXXADO) 8 MG SPRAY NS PRN (22:56)
[2022-10-01] MEDS ORDERED: DICYCLOMINE HCL 10 MG CAPSULE PO PRN (22:56)
[2022-10-01] MEDS ORDERED: BENZONATATE 200 MG CAPSULE PO PRN (22:56)
[2022-10-01] MEDS ORDERED: MELATONIN 5 MG TABLETS PO PRN (22:56)
[2022-10-01] MEDS ORDERED: diazePAM 5 MG TABLET PO PRN (23:00)
[2022-10-02] MEDS: diazePAM 5 MG TABLET PO SCH ×5 (03:10→22:12)
[2022-10-02] MEDS: PRENATAL VITAMINS W/ FOLIC ACID TABLET (FP) PO SCH (10:50)
[2022-10-02] MEDS: METHOCARBAMOL 500 MG TABLET PO PRN (10:51)
[2022-10-02] MEDS: hydrOXYzine PAMOATE 25 MG CAPSULE (FP) PO PRN (10:51)
[2022-10-02 12:33] LABS: HEMOGLOBIN 12.9 GM/dL (11.7-16.9); MCH 29.1 pg (25.7-33.7); MEAN CELL VOLUME 85.4 fl (80-96); MEAN PLT VOLUME 9.5 fl (7.5-11.1); PLATELET COUNT 146 10^3/uL (134-434); RBC 4.44 M/mm3 (4.00-5.60); RDW 14.7 % (11.9-15.9); WHITE BLOOD COUNT 5.6 K/mm3 (4.0-10.0)
[2022-10-02] MEDS: risperiDONE 1 MG TABLET PO SCH (12:54)
[2022-10-02] MEDS: SERTRALINE HCL 50 MG TABLET (FP) PO SCH (12:54)
[2022-10-02] MEDS: DIVALPROEX SODIUM 500 MG TABLET E.C. PO SCH ×2 (12:54→22:12)
[2022-10-02] MEDS: BENZTROPINE MESYLATE 0.5 MG TABLET (FP) PO SCH (12:54)
[2022-10-02 13:19] LABS: POTASSIUM 3.7 mmol/L (3.5-5.1)
[2022-10-02 13:33] LABS: CREATININE 0.8 mg/dL (0.55-1.3)
[2022-10-02 13:34] LABS: BILIRUBIN,TOTAL 0.4 mg/dL (0.2-1)
[2022-10-02 13:36] LABS: TOT PROT 6.8 g/dl (6.4-8.2)
[2022-10-02 13:37] LABS: ALBUMIN 3.3 g/dl (3.4-5.0); BLOOD UREA NITROGEN 13.2 mg/dL (7-18)
[2022-10-02 13:39] LABS: CALCIUM 8.5 mg/dL (8.5-10.1)
[2022-10-02] MEDS: P-EPHED 60MG/TRIPROLIDI 2.5MG TABLET PO PRN (16:24)
[2022-10-02] MEDS: NICOTINE POLACRILEX 2 MG GUM BUC PRN ×2 (16:25→20:48)
[2022-10-02] MEDS: traZODone HCL 50 MG TABLET (FP) PO SCH (22:12)
[2022-10-02] MEDS: THIAMINE HCL 100 MG TABLET (FP) PO SCH (22:12)
[2022-10-02] MEDS: MAGNESIUM HYDROX 2400MG/30ML ORAL SUSPENSION 30 ML CUP PO PRN (22:17)
[2022-10-03] MEDS: diazePAM 5 MG TABLET PO SCH ×2 (05:48→17:12)
[2022-10-03] MEDS: METHOCARBAMOL 500 MG TABLET PO PRN (10:36)
[2022-10-03] MEDS: hydrOXYzine PAMOATE 25 MG CAPSULE (FP) PO PRN (10:36)
[2022-10-03] MEDS: BENZTROPINE MESYLATE 0.5 MG TABLET (FP) PO SCH (10:36)
[2022-10-03] MEDS: PRENATAL VITAMINS W/ FOLIC ACID TABLET (FP) PO SCH (10:36)
[2022-10-03] MEDS: DIVALPROEX SODIUM 500 MG TABLET E.C. PO SCH ×2 (10:37→22:18)
[2022-10-03] MEDS: SERTRALINE HCL 50 MG TABLET (FP) PO SCH (10:37)
[2022-10-03] MEDS: risperiDONE 1 MG TABLET PO SCH (10:37)
[2022-10-03] MEDS: NICOTINE 14 MG/24 HOURS TOPICAL PATCH TD PRN (10:39)
[2022-10-03] MEDS: LIDOCAINE 5% TOPICAL PATCH TP SCH (13:01)
[2022-10-03] MEDS: MAGNESIUM HYDROX 2400MG/30ML ORAL SUSPENSION 30 ML CUP PO PRN (13:16)
[2022-10-03] MEDS: P-EPHED 60MG/TRIPROLIDI 2.5MG TABLET PO PRN (14:28)
[2022-10-03] MEDS: NICOTINE POLACRILEX 2 MG GUM BUC PRN ×3 (15:57→21:17)
[2022-10-03] MEDS ORDERED: COLLOIDAL OATMEAL 1 BAR EACH TP PRN (17:29)
[2022-10-03] MEDS ORDERED: LIDOCAINE PATCH REMOVAL MC SCH ×2 (22:00)
[2022-10-03] MEDS: traZODone HCL 50 MG TABLET (FP) PO SCH (22:18)
[2022-10-03] MEDS: THIAMINE HCL 100 MG TABLET (FP) PO SCH (22:18)
[2022-10-03] MEDS: FLUTICASONE PROP 0.05% 16 GM NASAL SPRAY NS PRN (22:20)
[2022-10-04] MEDS: FLUTICASONE PROP 0.05% 16 GM NASAL SPRAY NS PRN ×2 (05:37→10:25)
[2022-10-04] MEDS ORDERED: diazePAM 5 MG TABLET PO ONE (06:00)
[2022-10-04 06:32] VITALS: TEMP 97.7
[2022-10-04] MEDS: NICOTINE POLACRILEX 2 MG GUM BUC PRN (06:48)
[2022-10-04] MEDS: MAGNESIUM HYDROX 2400MG/30ML ORAL SUSPENSION 30 ML CUP PO PRN (07:44)
[2022-10-04 09:26] VITALS: BP 129/85; PULSE 98; RESP 16
[2022-10-04] MEDS: DIVALPROEX SODIUM 500 MG TABLET E.C. PO SCH (10:26)
[2022-10-04] MEDS: BENZTROPINE MESYLATE 0.5 MG TABLET (FP) PO SCH (10:26)
[2022-10-04] MEDS: SERTRALINE HCL 50 MG TABLET (FP) PO SCH (10:27)
[2022-10-04] MEDS: risperiDONE 1 MG TABLET PO SCH (10:27)
[2022-10-04] MEDS: PRENATAL VITAMINS W/ FOLIC ACID TABLET (FP) PO SCH (10:27)
[2022-10-04] MEDS: LIDOCAINE 5% TOPICAL PATCH TP SCH (10:27)
[2022-10-04] MEDS: NICOTINE 14 MG/24 HOURS TOPICAL PATCH TD PRN (10:29)
== END 2022-10-04 11:03 | disposition other institution (70) | DRG 775 ==
LOC: YASAS 21:14 → Y6N 10-02 01:44
PROVIDERS: ADMIT Allergy & Immunology; ATTEND Surgery
PROC: HZ2ZZZZ Detoxification Services for Substance Abuse Treatment (ICD-10-PCS; principal; 2022-10-02)
DX: F10.20 Alcohol dependence, uncomplicated (principal); F17.210 Nicotine dependence, cigarettes, uncomplicated; F31.9 Bipolar disorder, unspecified; F20.9 Schizophrenia, unspecified; F42.9 Obsessive-compulsive disorder, unspecified; L85.3 Xerosis cutis; M54.50 Low back pain, unspecified; G89.29 Other chronic pain; R09.81 Nasal congestion; R74.01 Elevation of levels of liver transaminase levels; R74.8 Abnormal levels of other serum enzymes
CPT/HCPCS: 36415; 80053; 80164; 85027; 86780; C9803-CS; U0003; U0005

== ENCOUNTER 2022-11-05 23:08 | Inpatient (IN) | payer OTHER ==
[2022-11-06 00:38] VITALS: BMI 40.4
[2022-11-06] MEDS ORDERED: BENZOCAINE/MENTHOL (CHLORASEPTIC ) LOZENGE MM PRN (01:26)
[2022-11-06] MEDS ORDERED: DICYCLOMINE HCL 10 MG CAPSULE PO PRN (01:26)
[2022-11-06] MEDS ORDERED: IBUPROFEN 400 MG TABLET (FP) PO PRN (01:26)
[2022-11-06] MEDS ORDERED: ONDANSETRON *ODT* 4 MG TABLET SL PRN (01:26)
[2022-11-06] MEDS ORDERED: BISMUTH SUBSALICYLATE 524 MG/30 ML PO PRN (01:26)
[2022-11-06] MEDS ORDERED: NALOXONE HCL (KLOXXADO) 8 MG SPRAY NS PRN (01:26)
[2022-11-06] MEDS ORDERED: BENZONATATE 200 MG CAPSULE PO PRN (01:26)
[2022-11-06] MEDS ORDERED: NALOXONE HCL 0.4 MG/ML VIAL IM PRN (01:26)
[2022-11-06] MEDS ORDERED: MAG HYDROX/AL HYDROX/SIMETH 30 ML UNIT-DOSE CUP PO PRN (01:26)
[2022-11-06] MEDS ORDERED: LOPERAMIDE HCL 2 MG CAPSULE PO PRN (01:26)
[2022-11-06] MEDS ORDERED: POLYETHYLENE GLYCOL (HEALTHYLAX) 3350 17 GM PACKET PO PRN (01:26)
[2022-11-06] MEDS ORDERED: guaiFENesin 600 MG TABLET.ER (FP) PO PRN (01:26)
[2022-11-06 10:41] LABS: HEMATOCRIT 40.8 % (35.4-49); HEMOGLOBIN 13.1 GM/dL (11.7-16.9); MCH 28.4 pg (25.7-33.7); MEAN CELL VOLUME 88.8 fl (80-96); MEAN PLT VOLUME 10.1 fl (7.5-11.1); PLATELET COUNT 133 10^3/uL (134-434); RBC 4.59 M/mm3 (4.00-5.60); RDW 14.6 % (11.9-15.9); WHITE BLOOD COUNT 5.4 K/mm3 (4.0-10.0)
[2022-11-06] MEDS ORDERED: chlordiazePOXIDE HCL 25 MG CAPSULE PO PRN (10:42)
[2022-11-06] MEDS: PRENATAL VITAMINS W/ FOLIC ACID TABLET (FP) PO SCH (10:48)
[2022-11-06] MEDS: chlordiazePOXIDE HCL 25 MG CAPSULE PO SCH ×3 (10:48→22:00)
[2022-11-06] MEDS: NICOTINE 21 MG/24 HOURS TOPICAL PATCH TD SCH (10:48)
[2022-11-06] MEDS: METHOCARBAMOL 500 MG TABLET PO PRN (10:48)
[2022-11-06 10:49] LABS: POTASSIUM 3.8 mmol/L (3.5-5.1)
[2022-11-06 10:55] LABS: BLOOD UREA NITROGEN 18.2 mg/dL (7-18); CALCIUM 8.8 mg/dL (8.5-10.1)
[2022-11-06 10:56] LABS: ALBUMIN 3.6 g/dl (3.4-5.0)
[2022-11-06 10:59] LABS: CREATININE 0.9 mg/dL (0.55-1.3)
[2022-11-06 11:00] LABS: BILIRUBIN,TOTAL 0.6 mg/dL (0.2-1); TOT PROT 6.9 g/dl (6.4-8.2)
[2022-11-06] MEDS: SERTRALINE HCL 50 MG TABLET (FP) PO SCH (15:32)
[2022-11-06] MEDS: MAGNESIUM HYDROX 2400MG/30ML ORAL SUSPENSION 30 ML CUP PO PRN (15:32)
[2022-11-06] MEDS: BENZTROPINE MESYLATE 0.5 MG TABLET (FP) PO SCH (15:58)
[2022-11-06] MEDS: NICOTINE POLACRILEX 2 MG GUM BUC PRN (19:25)
[2022-11-06] MEDS: THIAMINE HCL 100 MG TABLET (FP) PO SCH (22:00)
[2022-11-06] MEDS: traZODone HCL 50 MG TABLET (FP) PO SCH (22:00)
[2022-11-06] MEDS ORDERED: DIVALPROEX NA *ER* EXTEND REL 500 MG TABLET.SA (FP) PO SCH (22:00)
[2022-11-06] MEDS: MELATONIN 5 MG TABLETS PO SCH (22:01)
[2022-11-06] MEDS ORDERED: DIVALPROEX NA *ER* EXTEND REL 500 MG TABLET.SA (FP) PO ONE (22:30)
[2022-11-07] MEDS: chlordiazePOXIDE HCL 25 MG CAPSULE PO SCH ×4 (05:34→22:01)
[2022-11-07] MEDS: NICOTINE POLACRILEX 2 MG GUM BUC PRN ×3 (07:17→18:32)
[2022-11-07] MEDS ORDERED: COLLOIDAL OATMEAL 1 BAR EACH TP PRN (08:18)
[2022-11-07] MEDS: DIVALPROEX SODIUM 500 MG TABLET E.C. PO SCH ×3 (09:42→21:59)
[2022-11-07] MEDS: PRENATAL VITAMINS W/ FOLIC ACID TABLET (FP) PO SCH (10:42)
[2022-11-07] MEDS: risperiDONE 1 MG TABLET PO SCH (10:42)
[2022-11-07] MEDS: SERTRALINE HCL 50 MG TABLET (FP) PO SCH (10:43)
[2022-11-07] MEDS: METHOCARBAMOL 500 MG TABLET PO PRN ×2 (10:43→17:14)
[2022-11-07] MEDS: BENZTROPINE MESYLATE 0.5 MG TABLET (FP) PO SCH (10:43)
[2022-11-07] MEDS: AMMONIUM LACTATE 12% LOTION 225 GM BOTTLE TP SCH ×2 (10:43→22:01)
[2022-11-07] MEDS: NICOTINE 21 MG/24 HOURS TOPICAL PATCH TD SCH (10:45)
[2022-11-07] MEDS: MELATONIN 5 MG TABLETS PO SCH (21:59)
[2022-11-07] MEDS: traZODone HCL 50 MG TABLET (FP) PO SCH (21:59)
[2022-11-07] MEDS: THIAMINE HCL 100 MG TABLET (FP) PO SCH (21:59)
[2022-11-08] MEDS: chlordiazePOXIDE HCL 25 MG CAPSULE PO SCH ×4 (05:29→22:33)
[2022-11-08] MEDS: NICOTINE POLACRILEX 2 MG GUM BUC PRN ×2 (07:39→14:03)
[2022-11-08] MEDS: risperiDONE 1 MG TABLET PO SCH ×2 (10:05→22:31)
[2022-11-08] MEDS: PRENATAL VITAMINS W/ FOLIC ACID TABLET (FP) PO SCH (10:05)
[2022-11-08] MEDS: FLUTICASONE PROP 0.05% 16 GM NASAL SPRAY NS SCH ×2 (10:05→23:56)
[2022-11-08] MEDS: BENZTROPINE MESYLATE 0.5 MG TABLET (FP) PO SCH (10:05)
[2022-11-08] MEDS: METHOCARBAMOL 500 MG TABLET PO PRN (10:06)
[2022-11-08] MEDS: AMMONIUM LACTATE 12% LOTION 225 GM BOTTLE TP SCH ×2 (10:06→23:56)
[2022-11-08] MEDS: SERTRALINE HCL 50 MG TABLET (FP) PO SCH (10:06)
[2022-11-08] MEDS: NICOTINE 21 MG/24 HOURS TOPICAL PATCH TD SCH (10:06)
[2022-11-08] MEDS: DIVALPROEX SODIUM 500 MG TABLET E.C. PO SCH ×2 (10:06→22:33)
[2022-11-08] MEDS: MAGNESIUM HYDROX 2400MG/30ML ORAL SUSPENSION 30 ML CUP PO PRN ×2 (14:45→18:49)
[2022-11-08] MEDS: IBUPROFEN 600 MG TABLET (FP) PO PRN (15:55)
[2022-11-08] MEDS: THIAMINE HCL 100 MG TABLET (FP) PO SCH (22:30)
[2022-11-08] MEDS: traZODone HCL 50 MG TABLET (FP) PO SCH (22:31)
[2022-11-08] MEDS: MELATONIN 5 MG TABLETS PO SCH (22:31)
[2022-11-09] MEDS ORDERED: chlordiazePOXIDE HCL 10 MG CAPSULE PO PRN
[2022-11-09] MEDS: chlordiazePOXIDE HCL 10 MG CAPSULE PO SCH ×4 (05:27→22:00)
[2022-11-09] MEDS: IBUPROFEN 600 MG TABLET (FP) PO PRN ×3 (05:27→22:01)
[2022-11-09] MEDS: NICOTINE POLACRILEX 2 MG GUM BUC PRN (07:27)
[2022-11-09] MEDS: PRENATAL VITAMINS W/ FOLIC ACID TABLET (FP) PO SCH (10:05)
[2022-11-09] MEDS: BENZTROPINE MESYLATE 0.5 MG TABLET (FP) PO SCH (10:06)
[2022-11-09] MEDS: METHOCARBAMOL 500 MG TABLET PO PRN (10:06)
[2022-11-09] MEDS: DIVALPROEX SODIUM 500 MG TABLET E.C. PO SCH ×2 (10:06→22:00)
[2022-11-09] MEDS: risperiDONE 1 MG TABLET PO SCH ×2 (10:06→22:00)
[2022-11-09] MEDS: SERTRALINE HCL 50 MG TABLET (FP) PO SCH (10:06)
[2022-11-09] MEDS: FLUTICASONE PROP 0.05% 16 GM NASAL SPRAY NS SCH ×2 (10:06→21:59)
[2022-11-09] MEDS: AMMONIUM LACTATE 12% LOTION 225 GM BOTTLE TP SCH ×2 (10:06→22:04)
[2022-11-09] MEDS: NICOTINE 21 MG/24 HOURS TOPICAL PATCH TD SCH (10:09)
[2022-11-09] MEDS: MAGNESIUM HYDROX 2400MG/30ML ORAL SUSPENSION 30 ML CUP PO PRN (14:18)
[2022-11-09] MEDS: traZODone HCL 50 MG TABLET (FP) PO SCH (22:00)
[2022-11-09] MEDS: THIAMINE HCL 100 MG TABLET (FP) PO SCH (22:00)
[2022-11-09] MEDS: MELATONIN 5 MG TABLETS PO SCH (22:04)
[2022-11-10] MEDS: chlordiazePOXIDE HCL 10 MG CAPSULE PO SCH ×2 (05:41→17:17)
[2022-11-10] MEDS: IBUPROFEN 600 MG TABLET (FP) PO PRN ×3 (05:43→21:04)
[2022-11-10] MEDS: ACETAMINOPHEN 325 MG TABLET (FP) PO PRN ×2 (07:22→15:52)
[2022-11-10] MEDS: METHOCARBAMOL 500 MG TABLET PO PRN (07:22)
[2022-11-10] MEDS: NICOTINE POLACRILEX 2 MG GUM BUC PRN ×2 (07:22→18:00)
[2022-11-10] MEDS: SERTRALINE HCL 50 MG TABLET (FP) PO SCH (10:16)
[2022-11-10] MEDS: AMMONIUM LACTATE 12% LOTION 225 GM BOTTLE TP SCH ×2 (10:16→22:04)
[2022-11-10] MEDS: PRENATAL VITAMINS W/ FOLIC ACID TABLET (FP) PO SCH (10:16)
[2022-11-10] MEDS: risperiDONE 1 MG TABLET PO SCH ×2 (10:16→22:03)
[2022-11-10] MEDS: DIVALPROEX SODIUM 500 MG TABLET E.C. PO SCH ×2 (10:17→22:03)
[2022-11-10] MEDS: FLUTICASONE PROP 0.05% 16 GM NASAL SPRAY NS SCH ×2 (10:17→22:04)
[2022-11-10] MEDS: BENZTROPINE MESYLATE 0.5 MG TABLET (FP) PO SCH (10:17)
[2022-11-10] MEDS: NICOTINE 21 MG/24 HOURS TOPICAL PATCH TD SCH (10:19)
[2022-11-10] MEDS: THIAMINE HCL 100 MG TABLET (FP) PO SCH (22:03)
[2022-11-10] MEDS: traZODone HCL 50 MG TABLET (FP) PO SCH (22:03)
[2022-11-10] MEDS: MELATONIN 5 MG TABLETS PO SCH (22:04)
[2022-11-11] MEDS: IBUPROFEN 600 MG TABLET (FP) PO PRN (04:58)
[2022-11-11] MEDS ORDERED: chlordiazePOXIDE HCL 10 MG CAPSULE PO ONE (05:00)
[2022-11-11 06:13] VITALS: BP 145/93; PULSE 95; RESP 18; TEMP 97.7
[2022-11-11] MEDS: BENZTROPINE MESYLATE 0.5 MG TABLET (FP) PO SCH (10:42)
[2022-11-11] MEDS: DIVALPROEX SODIUM 500 MG TABLET E.C. PO SCH (10:42)
[2022-11-11] MEDS: NICOTINE 21 MG/24 HOURS TOPICAL PATCH TD SCH (10:43)
[2022-11-11] MEDS: PRENATAL VITAMINS W/ FOLIC ACID TABLET (FP) PO SCH (10:43)
[2022-11-11] MEDS: AMMONIUM LACTATE 12% LOTION 225 GM BOTTLE TP SCH (10:43)
[2022-11-11] MEDS: risperiDONE 1 MG TABLET PO SCH (10:43)
[2022-11-11] MEDS: FLUTICASONE PROP 0.05% 16 GM NASAL SPRAY NS SCH (10:43)
[2022-11-11] MEDS: SERTRALINE HCL 50 MG TABLET (FP) PO SCH (10:43)
== END 2022-11-11 08:50 | disposition other institution (70) | DRG 775 ==
LOC: YASAS 23:08 → Y6N 11-06 02:41
PROVIDERS: ADMIT Allergy & Immunology; ATTEND Surgery
PROC: HZ2ZZZZ Detoxification Services for Substance Abuse Treatment (ICD-10-PCS; principal; 2022-11-06)
DX: F10.230 Alcohol dependence with withdrawal, uncomplicated (principal); F12.20 Cannabis dependence, uncomplicated; F17.210 Nicotine dependence, cigarettes, uncomplicated; F31.9 Bipolar disorder, unspecified; F20.9 Schizophrenia, unspecified; K21.9 Gastro-esophageal reflux disease without esophagitis; M54.50 Low back pain, unspecified; G89.29 Other chronic pain; E66.01 Morbid (severe) obesity due to excess calories; Z68.41 Body mass index [BMI] 40.0-44.9, adult
CPT/HCPCS: 36415; 80053; 85027; 86780; 87635; 87811

== ENCOUNTER 2022-11-28 18:39 | Inpatient (IN) | payer OTHER ==
[2022-11-28 19:08] VITALS: BMI 41.2
[2022-11-28] MEDS ORDERED: LOPERAMIDE HCL 2 MG CAPSULE PO PRN (19:32)
[2022-11-28] MEDS ORDERED: BENZONATATE 200 MG CAPSULE PO PRN (19:32)
[2022-11-28] MEDS ORDERED: MAGNESIUM HYDROX 2400MG/30ML ORAL SUSPENSION 30 ML CUP PO PRN (19:32)
[2022-11-28] MEDS ORDERED: BENZOCAINE/MENTHOL (CHLORASEPTIC ) LOZENGE MM PRN (19:32)
[2022-11-28] MEDS ORDERED: BISMUTH SUBSALICYLATE 524 MG/30 ML PO PRN (19:32)
[2022-11-28] MEDS ORDERED: POLYETHYLENE GLYCOL (HEALTHYLAX) 3350 17 GM PACKET PO PRN (19:32)
[2022-11-28] MEDS ORDERED: ONDANSETRON *ODT* 4 MG TABLET SL PRN (19:32)
[2022-11-28] MEDS ORDERED: DICYCLOMINE HCL 10 MG CAPSULE PO PRN (19:32)
[2022-11-28] MEDS ORDERED: IBUPROFEN 400 MG TABLET (FP) PO PRN (19:32)
[2022-11-28] MEDS ORDERED: guaiFENesin 600 MG TABLET.ER (FP) PO PRN (19:32)
[2022-11-28] MEDS ORDERED: ACETAMINOPHEN 325 MG TABLET (FP) PO PRN (19:32)
[2022-11-28] MEDS ORDERED: MAG HYDROX/AL HYDROX/SIMETH 30 ML UNIT-DOSE CUP PO PRN (19:32)
[2022-11-28] MEDS ORDERED: P-EPHED 60MG/TRIPROLIDI 2.5MG TABLET PO PRN (19:32)
[2022-11-28] MEDS ORDERED: IBUPROFEN 600 MG TABLET (FP) PO ONE (20:00)
[2022-11-28] MEDS: IBUPROFEN 600 MG TABLET (FP) PO PRN (20:03)
[2022-11-28] MEDS ORDERED: traZODone HCL 50 MG TABLET (FP) PO ONE (22:00)
[2022-11-28] MEDS: THIAMINE HCL 100 MG TABLET (FP) PO SCH (22:14)
[2022-11-28] MEDS: MELATONIN 5 MG TABLETS PO SCH (22:14)
[2022-11-28] MEDS: METHOCARBAMOL 500 MG TABLET PO PRN (22:14)
[2022-11-29 09:01] LABS: HEMATOCRIT 38.3 % (35.4-49); HEMOGLOBIN 12.6 GM/dL (11.7-16.9); MCH 28.8 pg (25.7-33.7); MCHC 32.8 g/dl (32.0-35.9); MEAN CELL VOLUME 87.6 fl (80-96); MEAN PLT VOLUME 9.6 fl (7.5-11.1); PLATELET COUNT 159 10^3/uL (134-434); RBC 4.38 M/mm3 (4.00-5.60); RDW 14.4 % (11.9-15.9); WHITE BLOOD COUNT 5.1 K/mm3 (4.0-10.0)
[2022-11-29 09:14] LABS: CALCIUM 8.7 mg/dL (8.5-10.1)
[2022-11-29 09:15] LABS: ALBUMIN 3.1 g/dl (3.4-5.0); BLOOD UREA NITROGEN 15.5 mg/dL (7-18)
[2022-11-29 09:18] LABS: CREATININE 0.9 mg/dL (0.55-1.3)
[2022-11-29 09:20] LABS: BILIRUBIN,TOTAL 0.6 mg/dL (0.2-1); TOT PROT 6.6 g/dl (6.4-8.2)
[2022-11-29] MEDS: NICOTINE 21 MG/24 HOURS TOPICAL PATCH TD SCH (10:21)
[2022-11-29] MEDS: PRENATAL VITAMINS W/ FOLIC ACID TABLET (FP) PO SCH (10:21)
[2022-11-29] MEDS: BENZTROPINE MESYLATE 1 MG TABLET PO SCH (11:40)
[2022-11-29] MEDS: SERTRALINE HCL 50 MG TABLET (FP) PO SCH (11:40)
[2022-11-29] MEDS: DIVALPROEX SODIUM 500 MG TABLET E.C. PO SCH ×2 (11:40→22:02)
[2022-11-29] MEDS ORDERED: chlordiazePOXIDE HCL 25 MG CAPSULE PO PRN (12:41)
[2022-11-29] MEDS: chlordiazePOXIDE HCL 25 MG CAPSULE PO SCH ×2 (17:09→22:02)
[2022-11-29] MEDS: hydrOXYzine PAMOATE 25 MG CAPSULE (FP) PO PRN (17:11)
[2022-11-29] MEDS: NICOTINE POLACRILEX 2 MG GUM BUC PRN (17:36)
[2022-11-29] MEDS: METHOCARBAMOL 500 MG TABLET PO PRN (22:02)
[2022-11-29] MEDS: MELATONIN 5 MG TABLETS PO SCH (22:02)
[2022-11-29] MEDS: THIAMINE HCL 100 MG TABLET (FP) PO SCH (22:02)
[2022-11-29] MEDS: traZODone HCL 50 MG TABLET (FP) PO SCH (22:02)
[2022-11-30] MEDS: chlordiazePOXIDE HCL 25 MG CAPSULE PO SCH ×4 (05:15→22:01)
[2022-11-30] MEDS: PRENATAL VITAMINS W/ FOLIC ACID TABLET (FP) PO SCH (10:38)
[2022-11-30] MEDS: BENZTROPINE MESYLATE 1 MG TABLET PO SCH (10:38)
[2022-11-30] MEDS: NICOTINE 21 MG/24 HOURS TOPICAL PATCH TD SCH (10:38)
[2022-11-30] MEDS: SERTRALINE HCL 50 MG TABLET (FP) PO SCH (10:38)
[2022-11-30] MEDS: DIVALPROEX SODIUM 500 MG TABLET E.C. PO SCH ×2 (10:39→22:01)
[2022-11-30] MEDS: NICOTINE POLACRILEX 2 MG GUM BUC PRN ×2 (13:07→16:59)
[2022-11-30] MEDS: hydrOXYzine PAMOATE 25 MG CAPSULE (FP) PO PRN ×2 (14:39→22:04)
[2022-11-30] MEDS: MELATONIN 5 MG TABLETS PO SCH (22:01)
[2022-11-30] MEDS: traZODone HCL 50 MG TABLET (FP) PO SCH (22:01)
[2022-11-30] MEDS: THIAMINE HCL 100 MG TABLET (FP) PO SCH (22:01)
[2022-11-30] MEDS: METHOCARBAMOL 500 MG TABLET PO PRN (22:03)
[2022-12-01] MEDS: chlordiazePOXIDE HCL 25 MG CAPSULE PO SCH ×4 (05:25→22:01)
[2022-12-01] MEDS: METHOCARBAMOL 500 MG TABLET PO PRN ×2 (05:28→21:53)
[2022-12-01] MEDS: PRENATAL VITAMINS W/ FOLIC ACID TABLET (FP) PO SCH (10:07)
[2022-12-01] MEDS: BENZTROPINE MESYLATE 1 MG TABLET PO SCH (10:08)
[2022-12-01] MEDS: DIVALPROEX SODIUM 500 MG TABLET E.C. PO SCH ×2 (10:08→21:50)
[2022-12-01] MEDS: SERTRALINE HCL 50 MG TABLET (FP) PO SCH (10:08)
[2022-12-01] MEDS: NICOTINE 21 MG/24 HOURS TOPICAL PATCH TD SCH (10:09)
[2022-12-01] MEDS: NICOTINE POLACRILEX 2 MG GUM BUC PRN ×5 (10:20→21:52)
[2022-12-01] MEDS: MELATONIN 5 MG TABLETS PO SCH (21:50)
[2022-12-01] MEDS: THIAMINE HCL 100 MG TABLET (FP) PO SCH (21:51)
[2022-12-01] MEDS: traZODone HCL 50 MG TABLET (FP) PO SCH (21:51)
[2022-12-02] MEDS ORDERED: chlordiazePOXIDE HCL 10 MG CAPSULE PO PRN
[2022-12-02] MEDS: IBUPROFEN 600 MG TABLET (FP) PO PRN (03:50)
[2022-12-02] MEDS: chlordiazePOXIDE HCL 10 MG CAPSULE PO SCH ×4 (05:03→22:05)
[2022-12-02] MEDS ORDERED: COLLOIDAL OATMEAL 1 BAR EACH TP PRN (08:18)
[2022-12-02] MEDS: SERTRALINE HCL 50 MG TABLET (FP) PO SCH (10:11)
[2022-12-02] MEDS: FLUOCINONIDE 0.05% TOP OINT (60 GM TUBE) TP SCH ×2 (10:11→22:08)
[2022-12-02] MEDS: DIVALPROEX SODIUM 500 MG TABLET E.C. PO SCH ×2 (10:11→22:05)
[2022-12-02] MEDS: PRENATAL VITAMINS W/ FOLIC ACID TABLET (FP) PO SCH (10:11)
[2022-12-02] MEDS: NICOTINE 21 MG/24 HOURS TOPICAL PATCH TD SCH (10:11)
[2022-12-02] MEDS: hydrOXYzine PAMOATE 25 MG CAPSULE (FP) PO PRN (10:11)
[2022-12-02] MEDS: BENZTROPINE MESYLATE 1 MG TABLET PO SCH (10:11)
[2022-12-02] MEDS: NICOTINE POLACRILEX 2 MG GUM BUC PRN (11:35)
[2022-12-02 16:56] VITALS: RESP 18
[2022-12-02] MEDS: traZODone HCL 50 MG TABLET (FP) PO SCH (22:06)
[2022-12-02] MEDS: THIAMINE HCL 100 MG TABLET (FP) PO SCH (22:06)
[2022-12-02] MEDS: MELATONIN 5 MG TABLETS PO SCH (22:06)
[2022-12-03] MEDS: IBUPROFEN 600 MG TABLET (FP) PO PRN (04:36)
[2022-12-03] MEDS ORDERED: chlordiazePOXIDE HCL 10 MG CAPSULE PO SCH (05:00)
[2022-12-03] MEDS: DIVALPROEX SODIUM 500 MG TABLET E.C. PO SCH (09:14)
[2022-12-03] MEDS: PRENATAL VITAMINS W/ FOLIC ACID TABLET (FP) PO SCH (09:14)
[2022-12-03] MEDS: BENZTROPINE MESYLATE 1 MG TABLET PO SCH (09:14)
[2022-12-03] MEDS: SERTRALINE HCL 50 MG TABLET (FP) PO SCH (09:15)
[2022-12-03] MEDS: NICOTINE 21 MG/24 HOURS TOPICAL PATCH TD SCH (10:34)
[2022-12-03] MEDS: FLUOCINONIDE 0.05% TOP OINT (60 GM TUBE) TP SCH (10:34)
[2022-12-03 11:47] VITALS: BP 132/67; PULSE 69; TEMP 96.9
[2022-12-04] MEDS ORDERED: chlordiazePOXIDE HCL 10 MG CAPSULE PO ONE (05:00)
== END 2022-12-03 09:23 | disposition home or self-care (01) | DRG 775 ==
LOC: YASAS 18:39 → Y3N 19:39
PROVIDERS: ADMIT Allergy & Immunology; ATTEND Surgery
PROC: HZ2ZZZZ Detoxification Services for Substance Abuse Treatment (ICD-10-PCS; principal; 2022-11-28)
DX: F10.230 Alcohol dependence with withdrawal, uncomplicated (principal); F12.20 Cannabis dependence, uncomplicated; F17.210 Nicotine dependence, cigarettes, uncomplicated; F25.9 Schizoaffective disorder, unspecified; K21.9 Gastro-esophageal reflux disease without esophagitis; L30.9 Dermatitis, unspecified; M54.50 Low back pain, unspecified; G89.29 Other chronic pain; R21 Rash and other nonspecific skin eruption; E66.01 Morbid (severe) obesity due to excess calories; Z68.41 Body mass index [BMI] 40.0-44.9, adult
CPT/HCPCS: 36415; 80053; 85027; 86780; 87635; 87811

== ENCOUNTER 2022-12-03 14:38 | Inpatient (IN) | payer OTHER ==
[2022-12-03] MEDS ORDERED: MAGNESIUM HYDROX 2400MG/30ML ORAL SUSPENSION 30 ML CUP PO PRN (15:44)
[2022-12-03] MEDS ORDERED: COLLOIDAL OATMEAL 1 BAR EACH TP PRN (15:44)
[2022-12-03] MEDS ORDERED: BENZONATATE 200 MG CAPSULE PO PRN (15:44)
[2022-12-03] MEDS ORDERED: POLYETHYLENE GLYCOL (HEALTHYLAX) 3350 17 GM PACKET PO PRN (15:44)
[2022-12-03] MEDS ORDERED: NICOTINE POLACRILEX 2 MG GUM BUC PRN (15:44)
[2022-12-03] MEDS ORDERED: ACETAMINOPHEN 325 MG TABLET (FP) PO PRN (15:44)
[2022-12-03] MEDS ORDERED: IBUPROFEN 600 MG TABLET (FP) PO PRN (15:44)
[2022-12-03] MEDS ORDERED: METHOCARBAMOL 500 MG TABLET PO PRN (15:44)
[2022-12-03] MEDS ORDERED: IBUPROFEN 400 MG TABLET (FP) PO PRN (15:44)
[2022-12-03] MEDS ORDERED: MAG HYDROX/AL HYDROX/SIMETH 30 ML UNIT-DOSE CUP PO PRN (15:44)
[2022-12-03] MEDS ORDERED: P-EPHED 60MG/TRIPROLIDI 2.5MG TABLET PO PRN (15:44)
[2022-12-03] MEDS ORDERED: AMMONIUM LACTATE 12% LOTION 225 GM BOTTLE TP PRN (15:44)
[2022-12-03] MEDS ORDERED: LOPERAMIDE HCL 2 MG CAPSULE PO PRN (15:44)
[2022-12-03] MEDS ORDERED: guaiFENesin 600 MG TABLET.ER (FP) PO PRN (15:44)
[2022-12-03] MEDS ORDERED: hydrOXYzine PAMOATE 25 MG CAPSULE (FP) PO PRN (15:44)
[2022-12-03] MEDS ORDERED: BENZOCAINE/MENTHOL (CHLORASEPTIC ) LOZENGE MM PRN (15:44)
[2022-12-03 15:55] VITALS: BMI 40.6
[2022-12-03] MEDS: DIVALPROEX SODIUM 500 MG TABLET E.C. PO SCH (21:36)
[2022-12-03] MEDS ORDERED: traZODone HCL 50 MG TABLET (FP) PO SCH (22:00)
[2022-12-03] MEDS ORDERED: THIAMINE HCL 100 MG TABLET (FP) PO SCH (22:00)
[2022-12-03] MEDS ORDERED: MELATONIN 5 MG TABLETS PO SCH (22:00)
[2022-12-04 07:09] VITALS: RESP 18; TEMP 97.1
[2022-12-04 09:26] VITALS: BP 110/71; PULSE 90
[2022-12-04] MEDS ORDERED: SERTRALINE HCL 50 MG TABLET (FP) PO SCH (10:00)
[2022-12-04] MEDS ORDERED: BENZTROPINE MESYLATE 1 MG TABLET PO SCH (10:00)
[2022-12-04] MEDS ORDERED: PRENATAL VITAMINS W/ FOLIC ACID TABLET (FP) PO SCH ×2 (10:00)
[2022-12-04] MEDS: DIVALPROEX SODIUM 500 MG TABLET E.C. PO SCH (10:18)
[2022-12-04] MEDS ORDERED: NICOTINE 21 MG/24 HOURS TOPICAL PATCH TD PRN (10:37)
[2022-12-04] MEDS ORDERED: NICOTINE POLACRILEX 4 MG GUM BUC PRN (10:38)
== END 2022-12-04 12:40 | disposition home or self-care (01) | DRG 772 ==
LOC: YASAS 14:38 → Y3W 15:55
PROVIDERS: ADMIT Allergy & Immunology; ATTEND Psychiatry & Neurology Pain Medicine
PROC: HZ42ZZZ Group Counseling for Substance Abuse Treatment, Cognitive-Behavioral (ICD-10-PCS; principal; 2022-12-03)
DX: F10.20 Alcohol dependence, uncomplicated (principal); F10.24 Alcohol dependence with alcohol-induced mood disorder; F17.210 Nicotine dependence, cigarettes, uncomplicated; F10.282 Alcohol dependence with alcohol-induced sleep disorder; F10.280 Alcohol dependence with alcohol-induced anxiety disorder; F31.9 Bipolar disorder, unspecified; F25.9 Schizoaffective disorder, unspecified; F41.9 Anxiety disorder, unspecified; K21.9 Gastro-esophageal reflux disease without esophagitis; L30.9 Dermatitis, unspecified; M54.50 Low back pain, unspecified; G89.29 Other chronic pain; E66.01 Morbid (severe) obesity due to excess calories; Z68.41 Body mass index [BMI] 40.0-44.9, adult
CPT/HCPCS: 87635; 87811

== ENCOUNTER 2023-03-11 14:46 | Inpatient (IN) | payer OTHER ==
[2023-03-11 15:22] VITALS: BMI 44.1
[2023-03-11] MEDS ORDERED: BENZOCAINE/MENTHOL (CHLORASEPTIC ) LOZENGE MM PRN (16:14)
[2023-03-11] MEDS ORDERED: ACETAMINOPHEN 325 MG TABLET (FP) PO PRN (16:14)
[2023-03-11] MEDS ORDERED: LOPERAMIDE HCL 2 MG CAPSULE PO PRN (16:14)
[2023-03-11] MEDS ORDERED: IBUPROFEN 600 MG TABLET (FP) PO PRN (16:14)
[2023-03-11] MEDS ORDERED: ONDANSETRON *ODT* 4 MG TABLET SL PRN (16:14)
[2023-03-11] MEDS ORDERED: NALOXONE HCL (KLOXXADO) 8 MG SPRAY NS PRN (16:14)
[2023-03-11] MEDS ORDERED: BENZONATATE 200 MG CAPSULE PO PRN (16:14)
[2023-03-11] MEDS ORDERED: DICYCLOMINE HCL 10 MG CAPSULE PO PRN (16:14)
[2023-03-11] MEDS ORDERED: MAG HYDROX/AL HYDROX/SIMETH 30 ML UNIT-DOSE CUP PO PRN (16:14)
[2023-03-11] MEDS ORDERED: IBUPROFEN 400 MG TABLET (FP) PO PRN (16:14)
[2023-03-11] MEDS ORDERED: BISMUTH SUBSALICYLATE 524 MG/30 ML PO PRN (16:14)
[2023-03-11] MEDS ORDERED: NALOXONE HCL 0.4 MG/ML VIAL IM PRN (16:14)
[2023-03-11] MEDS ORDERED: guaiFENesin 600 MG TABLET.ER (FP) PO PRN (16:14)
[2023-03-11] MEDS ORDERED: MAGNESIUM HYDROX 2400MG/30ML ORAL SUSPENSION 30 ML CUP PO PRN (16:14)
[2023-03-11] MEDS ORDERED: POLYETHYLENE GLYCOL (HEALTHYLAX) 3350 17 GM PACKET PO PRN (16:14)
[2023-03-11] MEDS: hydrOXYzine PAMOATE 25 MG CAPSULE (FP) PO PRN (22:05)
[2023-03-11] MEDS: METHOCARBAMOL 500 MG TABLET PO PRN (22:05)
[2023-03-11] MEDS: THIAMINE HCL 100 MG TABLET (FP) PO SCH (22:05)
[2023-03-11] MEDS: PRENATAL VITAMINS W/ FOLIC ACID TABLET (FP) PO SCH (22:06)
[2023-03-11] MEDS: NICOTINE 14 MG/24 HOURS TOPICAL PATCH TD SCH (22:06)
[2023-03-11] MEDS: MELATONIN 5 MG TABLETS PO SCH (22:06)
[2023-03-12] MEDS: PRENATAL VITAMINS W/ FOLIC ACID TABLET (FP) PO SCH (09:37)
[2023-03-12] MEDS: NICOTINE 14 MG/24 HOURS TOPICAL PATCH TD SCH (09:39)
[2023-03-12] MEDS ORDERED: NICOTINE POLACRILEX 4 MG GUM BUC PRN (10:00)
[2023-03-12] MEDS ORDERED: COLLOIDAL OATMEAL 1 BAR EACH TP PRN (10:02)
[2023-03-12] MEDS: NICOTINE 21 MG/24 HOURS TOPICAL PATCH TD SCH (10:42)
[2023-03-12 11:12] LABS: CHLORIDE 108 mmol/L (98-107); SODIUM 140 mmol/L (136-145)
[2023-03-12 11:18] LABS: CALCIUM 8.7 mg/dL (8.5-10.1)
[2023-03-12 11:20] LABS: ALBUMIN 3.2 g/dl (3.4-5.0); ANION GAP 6 mmol/L (4-13); BLOOD UREA NITROGEN 14.2 mg/dL (7-18); CO2 26 mmol/L (21-32); GLUCOSE,RANDOM 101 mg/dL (74-106)
[2023-03-12 11:21] LABS: HEMATOCRIT 41.7 % (35.4-49); HEMOGLOBIN 13.5 GM/dL (11.7-16.9); MCH 28.7 pg (25.7-33.7); MCHC 32.4 g/dl (32.0-35.9); MEAN CELL VOLUME 88.6 fl (80-96); MEAN PLT VOLUME 9.5 fl (7.5-11.1); PLATELET COUNT 155 10^3/uL (134-434); RBC 4.71 M/mm3 (4.00-5.60); RDW 15.1 % (11.9-15.9)
[2023-03-12 11:23] LABS: CREATININE 0.8 mg/dL (0.55-1.3); SGOT/AST 32 U/L (15-37); SGPT/ALT 66 U/L (13-61)
[2023-03-12 11:24] LABS: BILIRUBIN,TOTAL 0.5 mg/dL (0.2-1); TOT PROT 6.9 g/dl (6.4-8.2)
[2023-03-12 11:25] LABS: ALK PHOS 89 U/L (45-117)
[2023-03-12] MEDS: cloNIDine HCL 0.1 MG TABLET PO PRN ×2 (12:42→20:52)
[2023-03-12 12:48] VITALS: RESP 18
[2023-03-12] MEDS: hydrOXYzine PAMOATE 25 MG CAPSULE (FP) PO PRN (17:05)
[2023-03-12] MEDS: METHOCARBAMOL 500 MG TABLET PO PRN (17:05)
[2023-03-12] MEDS ORDERED: traZODone HCL 50 MG TABLET (FP) PO SCH (22:00)
[2023-03-12] MEDS ORDERED: risperiDONE 1 MG TABLET PO SCH (22:00)
[2023-03-12] MEDS: MELATONIN 5 MG TABLETS PO SCH (22:17)
[2023-03-12] MEDS: THIAMINE HCL 100 MG TABLET (FP) PO SCH (22:17)
[2023-03-12] MEDS: DIVALPROEX SODIUM 500 MG TABLET E.C. PO SCH (22:18)
[2023-03-13] MEDS: METHOCARBAMOL 500 MG TABLET PO PRN (06:50)
[2023-03-13] MEDS: hydrOXYzine PAMOATE 25 MG CAPSULE (FP) PO PRN (06:50)
[2023-03-13] MEDS: PRENATAL VITAMINS W/ FOLIC ACID TABLET (FP) PO SCH (09:38)
[2023-03-13] MEDS: NICOTINE 21 MG/24 HOURS TOPICAL PATCH TD SCH (09:38)
[2023-03-13] MEDS: DIVALPROEX SODIUM 500 MG TABLET E.C. PO SCH (09:38)
[2023-03-13 09:46] VITALS: BP 142/78; PULSE 95; TEMP 97.1
[2023-03-13] MEDS ORDERED: SERTRALINE HCL 50 MG TABLET (FP) PO SCH (10:00)
== END 2023-03-13 09:56 | disposition home or self-care (01) | DRG 775 ==
LOC: YASAS 14:46 → Y6N 19:57
PROVIDERS: ADMIT Allergy & Immunology; ATTEND Surgery
PROC: HZ2ZZZZ Detoxification Services for Substance Abuse Treatment (ICD-10-PCS; principal; 2023-03-11)
DX: F10.230 Alcohol dependence with withdrawal, uncomplicated (principal); F17.210 Nicotine dependence, cigarettes, uncomplicated; F10.282 Alcohol dependence with alcohol-induced sleep disorder; F25.0 Schizoaffective disorder, bipolar type; K21.9 Gastro-esophageal reflux disease without esophagitis; F31.9 Bipolar disorder, unspecified; E66.01 Morbid (severe) obesity due to excess calories; Z68.41 Body mass index [BMI] 40.0-44.9, adult
CPT/HCPCS: 36415; 80053; 80164; 80307; 85027; 86780; 87635

== ENCOUNTER 2023-04-23 13:16 | Inpatient (IN) | payer OTHER ==
[2023-04-23 14:15] VITALS: BMI 40.3
[2023-04-23] MEDS ORDERED: ACETAMINOPHEN 325 MG TABLET (FP) PO PRN (17:33)
[2023-04-23] MEDS ORDERED: NICOTINE POLACRILEX 2 MG GUM BUC PRN (17:33)
[2023-04-23] MEDS ORDERED: ONDANSETRON *ODT* 4 MG TABLET SL PRN (17:33)
[2023-04-23] MEDS ORDERED: guaiFENesin 600 MG TABLET.ER (FP) PO PRN (17:33)
[2023-04-23] MEDS ORDERED: LOPERAMIDE HCL 2 MG CAPSULE PO PRN (17:33)
[2023-04-23] MEDS ORDERED: IBUPROFEN 600 MG TABLET (FP) PO PRN (17:33)
[2023-04-23] MEDS ORDERED: MAG HYDROX/AL HYDROX/SIMETH 30 ML UNIT-DOSE CUP PO PRN (17:33)
[2023-04-23] MEDS ORDERED: DICYCLOMINE HCL 10 MG CAPSULE PO PRN (17:33)
[2023-04-23] MEDS ORDERED: P-EPHED 60MG/TRIPROLIDI 2.5MG TABLET PO PRN (17:33)
[2023-04-23] MEDS ORDERED: MAGNESIUM HYDROX 2400MG/30ML ORAL SUSPENSION 30 ML CUP PO PRN (17:33)
[2023-04-23] MEDS ORDERED: BENZOCAINE/MENTHOL (CHLORASEPTIC ) LOZENGE MM PRN (17:33)
[2023-04-23] MEDS ORDERED: IBUPROFEN 400 MG TABLET (FP) PO PRN (17:33)
[2023-04-23] MEDS ORDERED: METHOCARBAMOL 500 MG TABLET PO PRN (17:33)
[2023-04-23] MEDS ORDERED: POLYETHYLENE GLYCOL (HEALTHYLAX) 3350 17 GM PACKET PO PRN (17:33)
[2023-04-23] MEDS ORDERED: BENZONATATE 200 MG CAPSULE PO PRN (17:33)
[2023-04-23] MEDS ORDERED: BISMUTH SUBSALICYLATE 524 MG/30 ML PO PRN (17:33)
[2023-04-23] MEDS ORDERED: hydrOXYzine PAMOATE 25 MG CAPSULE (FP) PO PRN (17:33)
[2023-04-23] MEDS ORDERED: propRANOLol HCL 10 MG TABLET PO ONE ×2 (20:02→21:15)
[2023-04-23] MEDS: THIAMINE HCL 100 MG TABLET (FP) PO SCH (21:51)
[2023-04-23] MEDS: MELATONIN 5 MG TABLETS PO SCH (21:52)
[2023-04-24] MEDS: PRENATAL VITAMINS W/ FOLIC ACID TABLET (FP) PO SCH (09:43)
[2023-04-24] MEDS: NICOTINE 14 MG/24 HOURS TOPICAL PATCH TD SCH (09:45)
[2023-04-24 12:22] LABS: HEMATOCRIT 44.7 % (35.4-49); HEMOGLOBIN 14.6 GM/dL (11.7-16.9); MCH 28.7 pg (25.7-33.7); MCHC 32.7 g/dl (32.0-35.9); MEAN CELL VOLUME 87.8 fl (80-96); MEAN PLT VOLUME 9.4 fl (7.5-11.1); PLATELET COUNT 202 10^3/uL (134-434); RDW 14.4 % (11.9-15.9); WHITE BLOOD COUNT 7.2 K/mm3 (4.0-10.0)
[2023-04-24 12:52] LABS: CHLORIDE 106 mmol/L (98-107); POTASSIUM 3.7 mmol/L (3.5-5.1); SODIUM 140 mmol/L (136-145)
[2023-04-24 12:56] LABS: ALBUMIN 3.5 g/dl (3.4-5.0); ANION GAP 8 mmol/L (4-13); BLOOD UREA NITROGEN 15.6 mg/dL (7-18); CALCIUM 8.5 mg/dL (8.5-10.1); CO2 26 mmol/L (21-32); GLUCOSE,RANDOM 97 mg/dL (74-106)
[2023-04-24 12:59] LABS: CREATININE 0.9 mg/dL (0.55-1.3); SGOT/AST 23 U/L (15-37); SGPT/ALT 51 U/L (13-61)
[2023-04-24 13:01] LABS: BILIRUBIN,TOTAL 0.7 mg/dL (0.2-1); TOT PROT 7.5 g/dl (6.4-8.2)
[2023-04-24 13:02] LABS: ALK PHOS 90 U/L (45-117)
[2023-04-24] MEDS: DIVALPROEX SODIUM 500 MG TABLET E.C. PO SCH ×2 (13:05→22:19)
[2023-04-24] MEDS: SERTRALINE HCL 50 MG TABLET (FP) PO SCH (13:05)
[2023-04-24] MEDS: risperiDONE 1 MG TABLET PO SCH (13:05)
[2023-04-24] MEDS: BENZTROPINE MESYLATE 1 MG TABLET PO SCH (13:05)
[2023-04-24] MEDS ORDERED: traZODone HCL 50 MG TABLET (FP) PO SCH (22:00)
[2023-04-24] MEDS: MELATONIN 5 MG TABLETS PO SCH (22:19)
[2023-04-24] MEDS: THIAMINE HCL 100 MG TABLET (FP) PO SCH (22:19)
[2023-04-25 09:08] VITALS: BP 110/74; PULSE 106; RESP 18; TEMP 97.3
[2023-04-25] MEDS: BENZTROPINE MESYLATE 1 MG TABLET PO SCH (10:51)
[2023-04-25] MEDS: DIVALPROEX SODIUM 500 MG TABLET E.C. PO SCH (10:52)
[2023-04-25] MEDS: NICOTINE 14 MG/24 HOURS TOPICAL PATCH TD SCH (10:52)
[2023-04-25] MEDS: PRENATAL VITAMINS W/ FOLIC ACID TABLET (FP) PO SCH (10:52)
[2023-04-25] MEDS: risperiDONE 1 MG TABLET PO SCH (10:53)
[2023-04-25] MEDS: SERTRALINE HCL 50 MG TABLET (FP) PO SCH (10:53)
== END 2023-04-25 08:10 | disposition home or self-care (01) | DRG 775 ==
LOC: YASAS 13:16 → Y6N 18:02
PROVIDERS: ADMIT Allergy & Immunology; ATTEND Surgery
PROC: HZ2ZZZZ Detoxification Services for Substance Abuse Treatment (ICD-10-PCS; principal; 2023-04-23)
DX: F10.20 Alcohol dependence, uncomplicated (principal); F17.210 Nicotine dependence, cigarettes, uncomplicated; F25.0 Schizoaffective disorder, bipolar type; K21.9 Gastro-esophageal reflux disease without esophagitis; L30.9 Dermatitis, unspecified; M54.50 Low back pain, unspecified; G89.29 Other chronic pain; Z59.01 Sheltered homelessness
CPT/HCPCS: 36415; 80053; 80164; 80307; 85027; 86780; 87635; Q0162

== ENCOUNTER 2023-06-10 12:40 | Inpatient (IN) | payer OTHER ==
[2023-06-10] MEDS ORDERED: MAG HYDROX/AL HYDROX/SIMETH 30 ML UNIT-DOSE CUP PO PRN (14:04)
[2023-06-10] MEDS ORDERED: NALOXONE HCL 0.4 MG/ML VIAL IM PRN (14:04)
[2023-06-10] MEDS ORDERED: BISMUTH SUBSALICYLATE 262 MG/15 ML BTL PO PRN (14:04)
[2023-06-10] MEDS ORDERED: MAGNESIUM HYDROX 2400MG/30ML ORAL SUSPENSION 30 ML CUP PO PRN (14:04)
[2023-06-10] MEDS ORDERED: DICYCLOMINE HCL 10 MG CAPSULE PO PRN (14:04)
[2023-06-10] MEDS ORDERED: BENZOCAINE/MENTHOL (CHLORASEPTIC ) LOZENGE MM PRN (14:04)
[2023-06-10] MEDS ORDERED: guaiFENesin 600 MG TABLET.ER (FP) PO PRN (14:04)
[2023-06-10] MEDS ORDERED: ACETAMINOPHEN 325 MG TABLET (FP) PO PRN (14:04)
[2023-06-10] MEDS ORDERED: POLYETHYLENE GLYCOL (HEALTHYLAX) 3350 17 GM PACKET PO PRN (14:04)
[2023-06-10] MEDS ORDERED: NALOXONE HCL (KLOXXADO) 8 MG SPRAY NS PRN (14:04)
[2023-06-10] MEDS ORDERED: IBUPROFEN 400 MG TABLET (FP) PO PRN (14:04)
[2023-06-10] MEDS ORDERED: BENZONATATE 200 MG CAPSULE PO PRN (14:04)
[2023-06-10] MEDS ORDERED: chlordiazePOXIDE HCL 25 MG CAPSULE PO PRN (14:08)
[2023-06-10 14:20] VITALS: BMI 36.5
[2023-06-10] MEDS: chlordiazePOXIDE HCL 25 MG CAPSULE PO SCH ×2 (17:49→22:01)
[2023-06-10] MEDS: MELATONIN 5 MG TABLETS PO SCH (22:00)
[2023-06-10] MEDS: THIAMINE HCL 100 MG TABLET (FP) PO SCH (22:00)
[2023-06-11] MEDS: chlordiazePOXIDE HCL 25 MG CAPSULE PO SCH ×2 (05:18→10:19)
[2023-06-11 09:59] LABS: HEMATOCRIT 43.2 % (35.4-49); HEMOGLOBIN 14.8 GM/dL (11.7-16.9); MCH 30.1 pg (25.7-33.7); MCHC 34.2 g/dl (32.0-35.9); MEAN PLT VOLUME 9.6 fl (7.5-11.1); PLATELET COUNT 157 10^3/uL (134-434); RBC 4.91 M/mm3 (4.00-5.60); RDW 15.2 % (11.9-15.9); WHITE BLOOD COUNT 6.8 K/mm3 (4.0-10.0)
[2023-06-11] MEDS: METHOCARBAMOL 500 MG TABLET PO PRN (10:18)
[2023-06-11] MEDS: NICOTINE 21 MG/24 HOURS TOPICAL PATCH TD SCH (10:18)
[2023-06-11] MEDS: PRENATAL VITAMINS W/ FOLIC ACID TABLET (FP) PO SCH (10:18)
[2023-06-11 10:38] LABS: POTASSIUM 3.8 mmol/L (3.5-5.1)
[2023-06-11 10:43] LABS: CALCIUM 9.8 mg/dL (8.5-10.1)
[2023-06-11 10:44] LABS: ALBUMIN 3.7 g/dl (3.4-5.0); BLOOD UREA NITROGEN 10.1 mg/dL (7-18)
[2023-06-11 10:48] LABS: TOT PROT 7.8 g/dl (6.4-8.2)
[2023-06-11 10:49] LABS: BILIRUBIN,TOTAL 0.4 mg/dL (0.2-1)
[2023-06-11] MEDS: NICOTINE POLACRILEX 2 MG GUM BUC PRN ×2 (11:02→15:56)
[2023-06-11] MEDS: BENZTROPINE MESYLATE 1 MG TABLET PO SCH (11:04)
[2023-06-11] MEDS: DIVALPROEX SODIUM 500 MG TABLET E.C. PO SCH ×2 (11:04→22:04)
[2023-06-11] MEDS: SERTRALINE HCL 50 MG TABLET (FP) PO SCH (11:04)
[2023-06-11] MEDS: amLODIPine BESYLATE 2.5 MG TABLET (FP) PO SCH (12:01)
[2023-06-11] MEDS: LOPERAMIDE HCL 2 MG CAPSULE PO PRN (13:28)
[2023-06-11] MEDS ORDERED: SIMETHICONE 80 MG TAB.CHEW (FP) PO PRN (17:24)
[2023-06-11] MEDS: chlordiazePOXIDE HCL 10 MG CAPSULE PO SCH ×2 (17:25→22:05)
[2023-06-11] MEDS: hydrOXYzine PAMOATE 25 MG CAPSULE (FP) PO PRN (17:27)
[2023-06-11] MEDS: PANTOPRAZOLE 20 MG TABLET PO SCH (17:33)
[2023-06-11] MEDS: risperiDONE 1 MG TABLET PO SCH (22:04)
[2023-06-11] MEDS: THIAMINE HCL 100 MG TABLET (FP) PO SCH (22:04)
[2023-06-11] MEDS: traZODone HCL 50 MG TABLET (FP) PO SCH (22:04)
[2023-06-11] MEDS: MELATONIN 5 MG TABLETS PO SCH (23:22)
[2023-06-12] MEDS ORDERED: chlordiazePOXIDE HCL 25 MG CAPSULE PO SCH (05:00)
[2023-06-12] MEDS ORDERED: chlordiazePOXIDE 5 MG CAPSULE ONE (05:35)
[2023-06-12] MEDS: chlordiazePOXIDE HCL 10 MG CAPSULE PO SCH ×3 (05:35→22:01)
[2023-06-12] MEDS: IBUPROFEN 600 MG TABLET (FP) PO PRN ×2 (05:38→20:45)
[2023-06-12] MEDS: NICOTINE POLACRILEX 2 MG GUM BUC PRN (08:58)
[2023-06-12] MEDS: NICOTINE 21 MG/24 HOURS TOPICAL PATCH TD SCH (09:58)
[2023-06-12] MEDS: PANTOPRAZOLE 20 MG TABLET PO SCH (10:00)
[2023-06-12] MEDS: BENZTROPINE MESYLATE 1 MG TABLET PO SCH (10:00)
[2023-06-12] MEDS: SERTRALINE HCL 50 MG TABLET (FP) PO SCH (10:00)
[2023-06-12] MEDS: DIVALPROEX SODIUM 500 MG TABLET E.C. PO SCH ×2 (10:00→22:01)
[2023-06-12] MEDS: amLODIPine BESYLATE 2.5 MG TABLET (FP) PO SCH (10:00)
[2023-06-12] MEDS: PRENATAL VITAMINS W/ FOLIC ACID TABLET (FP) PO SCH (10:00)
[2023-06-12] MEDS: hydrOXYzine PAMOATE 25 MG CAPSULE (FP) PO PRN (10:30)
[2023-06-12] MEDS: METHOCARBAMOL 500 MG TABLET PO PRN (17:06)
[2023-06-12] MEDS: ONDANSETRON *ODT* 4 MG TABLET SL PRN (19:59)
[2023-06-12] MEDS: THIAMINE HCL 100 MG TABLET (FP) PO SCH (22:01)
[2023-06-12] MEDS: risperiDONE 1 MG TABLET PO SCH (22:01)
[2023-06-12] MEDS: traZODone HCL 50 MG TABLET (FP) PO SCH (22:01)
[2023-06-12] MEDS: MELATONIN 5 MG TABLETS PO SCH (22:02)
[2023-06-13] MEDS ORDERED: chlordiazePOXIDE HCL 10 MG CAPSULE PO PRN
[2023-06-13] MEDS ORDERED: chlordiazePOXIDE HCL 10 MG CAPSULE PO SCH (05:00)
[2023-06-13] MEDS: chlordiazePOXIDE HCL 10 MG CAPSULE PO SCH ×2 (05:44→17:12)
[2023-06-13] MEDS: PRENATAL VITAMINS W/ FOLIC ACID TABLET (FP) PO SCH (10:38)
[2023-06-13] MEDS: BENZTROPINE MESYLATE 1 MG TABLET PO SCH (10:38)
[2023-06-13] MEDS: SERTRALINE HCL 50 MG TABLET (FP) PO SCH (10:38)
[2023-06-13] MEDS: amLODIPine BESYLATE 2.5 MG TABLET (FP) PO SCH (10:38)
[2023-06-13] MEDS: NICOTINE 21 MG/24 HOURS TOPICAL PATCH TD SCH (10:39)
[2023-06-13] MEDS: DIVALPROEX SODIUM 500 MG TABLET E.C. PO SCH ×2 (10:39→22:05)
[2023-06-13] MEDS: hydrOXYzine PAMOATE 25 MG CAPSULE (FP) PO PRN (10:40)
[2023-06-13] MEDS: PANTOPRAZOLE 20 MG TABLET PO SCH (10:47)
[2023-06-13] MEDS: IBUPROFEN 600 MG TABLET (FP) PO PRN (13:08)
[2023-06-13] MEDS: LOPERAMIDE HCL 2 MG CAPSULE PO PRN (13:09)
[2023-06-13] MEDS: ONDANSETRON *ODT* 4 MG TABLET SL PRN (13:09)
[2023-06-13] MEDS: NICOTINE POLACRILEX 2 MG GUM BUC PRN (16:03)
[2023-06-13 21:24] VITALS: BP 150/94; PULSE 125; RESP 18; TEMP 98.4
[2023-06-13] MEDS: risperiDONE 1 MG TABLET PO SCH (22:05)
[2023-06-13] MEDS: MELATONIN 5 MG TABLETS PO SCH (22:05)
[2023-06-13] MEDS: THIAMINE HCL 100 MG TABLET (FP) PO SCH (22:05)
[2023-06-13] MEDS: traZODone HCL 50 MG TABLET (FP) PO SCH (22:05)
[2023-06-14] MEDS: hydrOXYzine PAMOATE 25 MG CAPSULE (FP) PO PRN (02:50)
[2023-06-14] MEDS ORDERED: chlordiazePOXIDE HCL 10 MG CAPSULE PO SCH (05:00)
[2023-06-14] MEDS ORDERED: chlordiazePOXIDE HCL 10 MG CAPSULE PO ONE (06:00)
[2023-06-14] MEDS: PRENATAL VITAMINS W/ FOLIC ACID TABLET (FP) PO SCH (09:05)
[2023-06-14] MEDS: BENZTROPINE MESYLATE 1 MG TABLET PO SCH (09:05)
[2023-06-14] MEDS: PANTOPRAZOLE 20 MG TABLET PO SCH (09:05)
[2023-06-14] MEDS: NICOTINE 21 MG/24 HOURS TOPICAL PATCH TD SCH (09:05)
[2023-06-14] MEDS: amLODIPine BESYLATE 2.5 MG TABLET (FP) PO SCH (09:05)
[2023-06-14] MEDS: DIVALPROEX SODIUM 500 MG TABLET E.C. PO SCH (09:05)
[2023-06-14] MEDS: SERTRALINE HCL 50 MG TABLET (FP) PO SCH (09:05)
[2023-06-15] MEDS ORDERED: chlordiazePOXIDE HCL 10 MG CAPSULE PO ONE (05:00)
== END 2023-06-14 09:15 | disposition home or self-care (01) | DRG 775 ==
LOC: YASAS 12:40 → Y6N 14:49
PROVIDERS: ADMIT Allergy & Immunology; ATTEND Allergy & Immunology
PROC: HZ2ZZZZ Detoxification Services for Substance Abuse Treatment (ICD-10-PCS; principal; 2023-06-10)
DX: F10.230 Alcohol dependence with withdrawal, uncomplicated (principal); F17.210 Nicotine dependence, cigarettes, uncomplicated; F31.9 Bipolar disorder, unspecified; F10.282 Alcohol dependence with alcohol-induced sleep disorder; F10.280 Alcohol dependence with alcohol-induced anxiety disorder; F10.24 Alcohol dependence with alcohol-induced mood disorder; K21.9 Gastro-esophageal reflux disease without esophagitis; L30.9 Dermatitis, unspecified; M54.50 Low back pain, unspecified; G89.29 Other chronic pain
CPT/HCPCS: 36415; 80053; 80307; 85027; 86780; 87635; 87811; 93005; 93010; Q0162

== ENCOUNTER 2023-08-05 16:26 | Inpatient (IN) | payer OTHER ==
[2023-08-05 17:03] VITALS: BMI 40.7
[2023-08-05] MEDS ORDERED: NICOTINE POLACRILEX 2 MG LOZENGE BC PRN (17:32)
[2023-08-05] MEDS ORDERED: ACETAMINOPHEN 325 MG TABLET (FP) PO PRN (17:32)
[2023-08-05] MEDS ORDERED: guaiFENesin 600 MG TABLET.ER (FP) PO PRN (17:32)
[2023-08-05] MEDS ORDERED: BISMUTH SUBSALICYLATE 524 MG/30 ML PO PRN (17:32)
[2023-08-05] MEDS ORDERED: DICYCLOMINE HCL 10 MG CAPSULE PO PRN (17:32)
[2023-08-05] MEDS ORDERED: ONDANSETRON *ODT* 4 MG TABLET SL PRN (17:32)
[2023-08-05] MEDS ORDERED: IBUPROFEN 400 MG TABLET (FP) PO PRN (17:32)
[2023-08-05] MEDS ORDERED: LOPERAMIDE HCL 2 MG CAPSULE PO PRN (17:32)
[2023-08-05] MEDS ORDERED: POLYETHYLENE GLYCOL (HEALTHYLAX) 3350 17 GM PACKET PO PRN (17:32)
[2023-08-05] MEDS ORDERED: MAGNESIUM HYDROX 2400MG/30ML ORAL SUSPENSION 30 ML CUP PO PRN (17:32)
[2023-08-05] MEDS ORDERED: BENZONATATE 200 MG CAPSULE PO PRN (17:32)
[2023-08-05] MEDS ORDERED: BENZOCAINE/MENTHOL (CHLORASEPTIC ) LOZENGE MM PRN (17:32)
[2023-08-05] MEDS ORDERED: MAG HYDROX/AL HYDROX/SIMETH 30 ML UNIT-DOSE CUP PO PRN (17:32)
[2023-08-05] MEDS: hydrOXYzine PAMOATE 25 MG CAPSULE (FP) PO PRN (18:48)
[2023-08-05] MEDS: propRANOLol HCL 10 MG TABLET PO ONE (20:47)
[2023-08-05] MEDS ORDERED: chlordiazePOXIDE HCL 25 MG CAPSULE PO PRN (20:56)
[2023-08-05] MEDS: THIAMINE HCL 100 MG TABLET (FP) PO SCH (22:22)
[2023-08-05] MEDS: MELATONIN 5 MG TABLETS PO SCH (22:22)
[2023-08-05] MEDS: METHOCARBAMOL 500 MG TABLET PO PRN (22:22)
[2023-08-05] MEDS: chlordiazePOXIDE HCL 25 MG CAPSULE PO SCH (22:23)
[2023-08-06] MEDS: NICOTINE POLACRILEX 2 MG GUM BUC PRN (07:31)
[2023-08-06 08:53] LABS: HEMATOCRIT 40.8 % (35.4-49); HEMOGLOBIN 13.3 GM/dL (11.7-16.9); MCH 29.8 pg (25.7-33.7); MCHC 32.7 g/dl (32.0-35.9); MEAN CELL VOLUME 91.3 fl (80-96); MEAN PLT VOLUME 9.3 fl (7.5-11.1); PLATELET COUNT 121 10^3/uL (134-434); RBC 4.47 M/mm3 (4.00-5.60); RDW 15.8 % (11.9-15.9)
[2023-08-06 09:06] LABS: POTASSIUM 3.7 mmol/L (3.5-5.1)
[2023-08-06 09:08] LABS: ALBUMIN 2.4 g/dl (3.4-5.0); BLOOD UREA NITROGEN 12.5 mg/dL (7-18); CALCIUM 8.2 mg/dL (8.5-10.1)
[2023-08-06 09:13] LABS: BILIRUBIN,TOTAL 0.7 mg/dL (0.2-1); TOT PROT 5.9 g/dl (6.4-8.2)
[2023-08-06] MEDS: PRENATAL VITAMINS W/ FOLIC ACID TABLET (FP) PO SCH (10:23)
[2023-08-06] MEDS: SERTRALINE HCL 50 MG TABLET (FP) PO SCH (13:29)
[2023-08-06] MEDS: DIVALPROEX SODIUM 500 MG TABLET E.C. PO SCH (13:29)
[2023-08-06] MEDS: IBUPROFEN 600 MG TABLET (FP) PO PRN (15:23)
[2023-08-06] MEDS: risperiDONE 1 MG TABLET PO SCH (22:07)
[2023-08-06] MEDS: traZODone HCL 50 MG TABLET (FP) PO SCH (22:07)
[2023-08-07] MEDS: chlordiazePOXIDE HCL 25 MG CAPSULE PO SCH (05:11)
[2023-08-07] MEDS: NICOTINE 21 MG/24 HOURS TOPICAL PATCH TD SCH (12:11)
[2023-08-07] MEDS: LORazepam 1 MG TABLET PO PRN (14:31)
[2023-08-07] MEDS: LORazepam 2 MG TABLET PO SCH (17:04)
[2023-08-08] MEDS ORDERED: chlordiazePOXIDE HCL 10 MG CAPSULE PO PRN
[2023-08-08] MEDS ORDERED: chlordiazePOXIDE HCL 10 MG CAPSULE PO SCH (05:00)
[2023-08-08] MEDS: LORazepam 1 MG TABLET PO SCH (05:21)
[2023-08-08 06:44] VITALS: BP 115/70; PULSE 96; RESP 17; TEMP 97.7
[2023-08-09] MEDS ORDERED: LORazepam 0.5 MG TABLET PO PRN
[2023-08-09] MEDS ORDERED: chlordiazePOXIDE HCL 10 MG CAPSULE PO SCH (05:00)
[2023-08-09] MEDS ORDERED: LORazepam 0.5 MG TABLET PO SCH (05:00)
[2023-08-10] MEDS ORDERED: LORazepam 0.5 MG TABLET PO ONE (05:00)
[2023-08-10] MEDS ORDERED: chlordiazePOXIDE HCL 10 MG CAPSULE PO ONE (05:00)
== END 2023-08-08 09:15 | disposition home or self-care (01) | DRG 775 ==
LOC: YASAS 16:26 → Y6N 17:58
PROVIDERS: ADMIT Allergy & Immunology; ATTEND Surgery
PROC: HZ2ZZZZ Detoxification Services for Substance Abuse Treatment (ICD-10-PCS; principal; 2023-08-05)
DX: F10.230 Alcohol dependence with withdrawal, uncomplicated (principal); F17.210 Nicotine dependence, cigarettes, uncomplicated; F10.280 Alcohol dependence with alcohol-induced anxiety disorder; F10.282 Alcohol dependence with alcohol-induced sleep disorder; F10.24 Alcohol dependence with alcohol-induced mood disorder; F31.9 Bipolar disorder, unspecified; K21.9 Gastro-esophageal reflux disease without esophagitis; L30.9 Dermatitis, unspecified; M54.50 Low back pain, unspecified; G89.29 Other chronic pain; R74.01 Elevation of levels of liver transaminase levels
CPT/HCPCS: 36415; 80053; 85027; 86780

== ENCOUNTER 2023-09-18 16:07 | Inpatient (IN) | payer OTHER ==
[2023-09-18 16:32] VITALS: BMI 44.1
[2023-09-18] MEDS ORDERED: POLYETHYLENE GLYCOL (HEALTHYLAX) 3350 17 GM PACKET PO PRN (16:58)
[2023-09-18] MEDS ORDERED: IBUPROFEN 600 MG TABLET (FP) PO PRN (16:58)
[2023-09-18] MEDS ORDERED: ONDANSETRON *ODT* 4 MG TABLET SL PRN (16:58)
[2023-09-18] MEDS ORDERED: NALOXONE HCL 0.4 MG/ML VIAL IM PRN (16:58)
[2023-09-18] MEDS ORDERED: IBUPROFEN 400 MG TABLET (FP) PO PRN (16:58)
[2023-09-18] MEDS ORDERED: BENZONATATE 200 MG CAPSULE PO PRN (16:58)
[2023-09-18] MEDS ORDERED: MAG HYDROX/AL HYDROX/SIMETH 30 ML UNIT-DOSE CUP PO PRN (16:58)
[2023-09-18] MEDS ORDERED: ACETAMINOPHEN 325 MG TABLET (FP) PO PRN (16:58)
[2023-09-18] MEDS ORDERED: NALOXONE HCL (KLOXXADO) 8 MG SPRAY NS PRN (16:58)
[2023-09-18] MEDS ORDERED: BENZOCAINE/MENTHOL (CHLORASEPTIC ) LOZENGE MM PRN (16:58)
[2023-09-18] MEDS ORDERED: MAGNESIUM HYDROX 2400MG/30ML ORAL SUSPENSION 30 ML CUP PO PRN (16:58)
[2023-09-18] MEDS ORDERED: BISMUTH SUBSALICYLATE 524 MG/30 ML PO PRN (16:58)
[2023-09-18] MEDS ORDERED: guaiFENesin 600 MG TABLET.ER (FP) PO PRN (16:58)
[2023-09-18] MEDS ORDERED: LOPERAMIDE HCL 2 MG CAPSULE PO PRN (16:58)
[2023-09-18] MEDS ORDERED: DICYCLOMINE HCL 10 MG CAPSULE PO PRN (16:58)
[2023-09-18] MEDS: chlordiazePOXIDE HCL 25 MG CAPSULE PO PRN (17:53)
[2023-09-18] MEDS: PRENATAL VITAMINS W/ FOLIC ACID TABLET (FP) PO SCH (17:53)
[2023-09-18] MEDS: THIAMINE 100 MG TABLET PO SCH (22:04)
[2023-09-18] MEDS: MELATONIN 5 MG TABLETS PO SCH (22:04)
[2023-09-18] MEDS: chlordiazePOXIDE HCL 25 MG CAPSULE PO SCH (22:05)
[2023-09-19] MEDS: NICOTINE 21 MG/24 HOURS TOPICAL PATCH TD SCH (10:18)
[2023-09-19 12:30] LABS: HEMATOCRIT 41.5 % (35.4-49); HEMOGLOBIN 13.8 GM/dL (11.7-16.9); MCH 29.9 pg (25.7-33.7); MCHC 33.2 g/dl (32.0-35.9); MEAN PLT VOLUME 9.9 fl (7.5-11.1); PLATELET COUNT 155 10^3/uL (134-434); RBC 4.61 M/mm3 (4.00-5.60); RDW 14.6 % (11.9-15.9); WHITE BLOOD COUNT 7.6 K/mm3 (4.0-10.0)
[2023-09-19 12:52] LABS: CHLORIDE 109 mmol/L (98-107); SODIUM 142 mmol/L (136-145)
[2023-09-19 13:01] LABS: ALBUMIN 3.3 g/dl (3.4-5.0); ANION GAP 7 mmol/L (4-13); CALCIUM 8.9 mg/dL (8.5-10.1); CO2 26 mmol/L (21-32); GLUCOSE,RANDOM 99 mg/dL (74-106)
[2023-09-19 13:05] LABS: BLOOD UREA NITROGEN 12.3 mg/dL (7-18); CREATININE 0.9 mg/dL (0.55-1.3); SGOT/AST 36 U/L (15-37); SGPT/ALT 59 U/L (13-61)
[2023-09-19 13:06] LABS: BILIRUBIN,TOTAL 0.3 mg/dL (0.2-1)
[2023-09-19 13:07] LABS: ALK PHOS 93 U/L (45-117)
[2023-09-19] MEDS: hydrOXYzine PAMOATE 25 MG CAPSULE (FP) PO PRN (14:11)
[2023-09-19] MEDS: LACTULOSE 20 GM/30 ML UDC (FOR ORAL USE ONLY) PO SCH (14:11)
[2023-09-19] MEDS ORDERED: cloNIDine HCL 0.1 MG TABLET PO PRN (14:33)
[2023-09-19] MEDS: DIVALPROEX SODIUM 500 MG TABLET E.C. PO ONE (15:05)
[2023-09-19] MEDS: DIVALPROEX SODIUM 500 MG TABLET E.C. PO SCH (22:28)
[2023-09-19] MEDS: METHOCARBAMOL 500 MG TABLET PO PRN (22:28)
[2023-09-19] MEDS: risperiDONE 1 MG TABLET PO SCH (22:29)
[2023-09-19] MEDS: traZODone HCL 50 MG TABLET (FP) PO SCH (22:29)
[2023-09-20] MEDS: chlordiazePOXIDE HCL 25 MG CAPSULE PO SCH (06:00)
[2023-09-20 09:25] VITALS: RESP 18
[2023-09-20] MEDS: SERTRALINE HCL 50 MG TABLET (FP) PO SCH (10:36)
[2023-09-20 12:59] VITALS: BP 106/67; PULSE 122; TEMP 97.5
[2023-09-21] MEDS ORDERED: chlordiazePOXIDE HCL 10 MG CAPSULE PO PRN
[2023-09-21] MEDS ORDERED: chlordiazePOXIDE HCL 10 MG CAPSULE PO SCH (05:00)
[2023-09-22] MEDS ORDERED: chlordiazePOXIDE HCL 10 MG CAPSULE PO SCH (05:00)
[2023-09-23] MEDS ORDERED: chlordiazePOXIDE HCL 10 MG CAPSULE PO ONE (05:00)
== END 2023-09-20 13:50 | disposition left against medical advice (07) | DRG 770 ==
LOC: YASAS 16:07 → Y3N 17:16
PROVIDERS: ADMIT Allergy & Immunology; ATTEND Surgery
PROC: HZ2ZZZZ Detoxification Services for Substance Abuse Treatment (ICD-10-PCS; principal; 2023-09-18)
DX: F10.230 Alcohol dependence with withdrawal, uncomplicated (principal); F17.210 Nicotine dependence, cigarettes, uncomplicated; F41.9 Anxiety disorder, unspecified; F25.9 Schizoaffective disorder, unspecified; I10 Essential (primary) hypertension; K21.9 Gastro-esophageal reflux disease without esophagitis; M54.59 Other low back pain; G89.29 Other chronic pain; G40.909 Epilepsy, unspecified, not intractable, without status epilepticus; E72.20 Disorder of urea cycle metabolism, unspecified; L30.9 Dermatitis, unspecified; Z91.51 Personal history of suicidal behavior; Z56.0 Unemployment, unspecified
CPT/HCPCS: 36415; 80053; 80305; 80307; 82140; 85027; 86780; 93005; 93010

== ENCOUNTER 2024-03-24 10:01 | Inpatient (IN) | payer OTHER ==
[2024-03-24 10:33] VITALS: BMI 48.7
[2024-03-24] MEDS ORDERED: ACETAMINOPHEN 325 MG TABLET (FP) PO PRN (10:58)
[2024-03-24] MEDS ORDERED: MAG HYDROX/AL HYDROX/SIMETH 30 ML UNIT-DOSE CUP PO PRN (10:58)
[2024-03-24] MEDS ORDERED: DICYCLOMINE HCL 10 MG CAPSULE PO PRN (10:58)
[2024-03-24] MEDS ORDERED: IBUPROFEN 400 MG TABLET (FP) PO PRN (10:58)
[2024-03-24] MEDS ORDERED: BENZOCAINE/MENTHOL (CHLORASEPTIC ) LOZENGE MM PRN (10:58)
[2024-03-24] MEDS ORDERED: NICOTINE POLACRILEX 2 MG LOZENGE BC PRN (10:58)
[2024-03-24] MEDS ORDERED: ONDANSETRON *ODT* 4 MG TABLET SL PRN (10:58)
[2024-03-24] MEDS ORDERED: POLYETHYLENE GLYCOL (HEALTHYLAX) 3350 17 GM PACKET PO PRN (10:58)
[2024-03-24] MEDS ORDERED: LOPERAMIDE HCL 2 MG CAPSULE PO PRN (10:58)
[2024-03-24] MEDS ORDERED: BENZONATATE 200 MG CAPSULE PO PRN (10:58)
[2024-03-24] MEDS ORDERED: MAGNESIUM HYDROX 2400MG/30ML ORAL SUSPENSION 30 ML CUP PO PRN (10:58)
[2024-03-24] MEDS ORDERED: BISMUTH SUBSALICYLATE 262 MG/15 ML BTL PO PRN (10:58)
[2024-03-24] MEDS ORDERED: NICOTINE 7 MG/24 HOURS TOPICAL PATCH TD ONE (11:39)
[2024-03-24] MEDS ORDERED: METOPROLOL TARTRATE 25 MG TABLET (FP) ONE (11:39)
[2024-03-24] MEDS: NICOTINE 14 MG/24 HOURS TOPICAL PATCH TD SCH (11:42)
[2024-03-24] MEDS: METOPROLOL TARTRATE 50 MG TABLET (FP) PO ONE (11:43)
[2024-03-24] MEDS: hydrOXYzine PAMOATE 25 MG CAPSULE (FP) PO PRN (12:45)
[2024-03-24] MEDS: NICOTINE POLACRILEX 2 MG GUM BUC PRN (13:02)
[2024-03-24] MEDS: IBUPROFEN 600 MG TABLET (FP) PO PRN (17:00)
[2024-03-24] MEDS: METHOCARBAMOL 500 MG TABLET PO PRN (18:05)
[2024-03-24] MEDS ORDERED: PATIENT'S OWN MEDICATION (NON-FORMULARY) (Melatonin [Melatonin] 10 MG Tablet) PO SCH (22:00)
[2024-03-24] MEDS: DIVALPROEX SODIUM 500 MG TABLET E.C. PO SCH (22:59)
[2024-03-24] MEDS: traZODone HCL 50 MG TABLET (FP) PO SCH (22:59)
[2024-03-24] MEDS: THIAMINE 100 MG TABLET PO SCH (22:59)
[2024-03-24] MEDS: risperiDONE 1 MG TABLET PO SCH (22:59)
[2024-03-24] MEDS: MELATONIN 5 MG TABLETS PO SCH (22:59)
[2024-03-25] MEDS ORDERED: chlordiazePOXIDE HCL 25 MG CAPSULE PO PRN (09:53)
[2024-03-25] MEDS: PRENATAL VITAMINS W/ FOLIC ACID TABLET (FP) PO SCH (10:34)
[2024-03-25] MEDS: SERTRALINE HCL 50 MG TABLET (FP) PO SCH (10:34)
[2024-03-25] MEDS: chlordiazePOXIDE HCL 25 MG CAPSULE PO SCH (10:35)
[2024-03-25 12:49] LABS: HEMATOCRIT 39.6 % (35.4-49); MCH 29.9 pg (25.7-33.7); MCHC 32.8 g/dl (32.0-35.9); MEAN CELL VOLUME 91.1 fl (80-96); MEAN PLT VOLUME 9.7 fl (7.5-11.1); PLATELET COUNT 135 10^3/uL (134-434); RBC 4.34 M/mm3 (4.00-5.60); RDW 15.1 % (11.9-15.9); WHITE BLOOD COUNT 5.1 K/mm3 (4.0-10.0)
[2024-03-25 12:54] LABS: POTASSIUM 4.1 mmol/L (3.5-5.1)
[2024-03-25 12:56] LABS: ALBUMIN 3.1 g/dl (3.4-5.0); CALCIUM 8.7 mg/dL (8.5-10.1)
[2024-03-25 12:57] LABS: BLOOD UREA NITROGEN 14.3 mg/dL (7-18)
[2024-03-25 13:00] LABS: CREATININE 0.8 mg/dL (0.55-1.3)
[2024-03-25 13:01] LABS: BILIRUBIN,TOTAL 0.3 mg/dL (0.2-1); TOT PROT 6.3 g/dl (6.4-8.2)
[2024-03-25] MEDS: METHOCARBAMOL 500 MG TABLET PO PRN (15:51)
[2024-03-25] MEDS: guaiFENesin 600 MG TABLET.ER (FP) PO PRN (19:03)
[2024-03-25] MEDS: P-EPHED 60MG/TRIPROLIDI 2.5MG TABLET PO PRN (19:07)
[2024-03-25] MEDS ORDERED: guaiFENesin 600 MG TABLET.ER (FP) PO SCH (22:00)
[2024-03-26] MEDS: NALOXONE (NYS OPIOID OVERDOSE PROGRAM) 4 MG/0.1 ML SPRAY NS SCH (09:23)
[2024-03-26 09:33] VITALS: BP 129/73; PULSE 92; RESP 18; TEMP 97.5
[2024-03-27] MEDS ORDERED: chlordiazePOXIDE HCL 25 MG CAPSULE PO SCH (05:00)
[2024-03-28] MEDS ORDERED: chlordiazePOXIDE HCL 10 MG CAPSULE PO PRN
[2024-03-28] MEDS ORDERED: chlordiazePOXIDE HCL 10 MG CAPSULE PO SCH (05:00)
[2024-03-29] MEDS ORDERED: chlordiazePOXIDE HCL 10 MG CAPSULE PO SCH (05:00)
[2024-03-30] MEDS ORDERED: chlordiazePOXIDE HCL 10 MG CAPSULE PO ONE (05:00)
== END 2024-03-26 10:10 | disposition home or self-care (01) | DRG 775 ==
LOC: YASAS 10:01 → Y3N 11:39
PROVIDERS: ADMIT Allergy & Immunology; ATTEND Surgery
PROC: HZ2ZZZZ Detoxification Services for Substance Abuse Treatment (ICD-10-PCS; principal; 2024-03-24)
DX: F10.20 Alcohol dependence, uncomplicated (principal); F17.210 Nicotine dependence, cigarettes, uncomplicated; F25.9 Schizoaffective disorder, unspecified; F31.9 Bipolar disorder, unspecified; F41.9 Anxiety disorder, unspecified; I10 Essential (primary) hypertension; K21.9 Gastro-esophageal reflux disease without esophagitis; L30.9 Dermatitis, unspecified; M54.50 Low back pain, unspecified; G89.29 Other chronic pain
CPT/HCPCS: 36415; 80053; 80305; 80307; 85027